=== PATIENT | female | born 1935 | race Caucasian/White ===

== ENCOUNTER 2016-12-27 10:01 | Inpatient (IN) | payer MEDICARE, BC, MEDICAID ==
[2016-12-27] MEDS ORDERED: FISH OIL PO PRN (13:42)
[2016-12-27] MEDS ORDERED: diphenhydrAMINE 25 MG Cap PO PRN (13:42)
[2016-12-27] MEDS ORDERED: Meclizine 12.5 MG Tab PO PRN (13:42)
[2016-12-27] MEDS: Acetaminophen/HYDROcodone 325-5 MG Tab PO PRN ×3 (14:35→21:59)
[2016-12-27] MEDS: Potassium Chloride 10 MEQ Tab.ER PO SCH ×2 (17:25→20:06)
[2016-12-27] MEDS: Fluticasone Propionate Nasal Spray 16 GM Bottle NASBOTH SCH (20:01)
[2016-12-27] MEDS: Latanoprost 0.005% Ophth Soln 2.5 ML Bottle EYEBOTH SCH (20:02)
--- NOTE | 2016-12-27 22:06 | HP ---
CHIEF COMPLAINT: Status post hip replacement. HISTORY OF PRESENT ILLNESS: Amber is an 81-year-old female who presents to the ER today for a swing bed admission status post left hip total replacement. The patient underwent a hip replacement on 12/22/2016. She states she is feeling well status post surgery. She states that she has had a little bit discomfort with it, however, she has been taking hydrocodone which does give her some relief. She denies any bowel changes. No constipation secondary to narcotic use. She states it has been irregular. States she has not had any infections or any drainage from the site. She has been getting up and being ambulatory with a walker. She states that she definitely feels that she is a little hesitant with walking, however, it is progressing daily. PAST MEDICAL HISTORY: Chronic illnesses do include a history of allergic rhinitis, arthritis, history of edema, gastroesophageal reflux disease, history of hypertension, hormonal replacement therapy, hypothyroidism, insomnia, history of diarrhea. ALLERGIES: CURRENT ALLERGIES INCLUDE A FLOXIN, MONISTAT 1, TROVAN, AMPICILLIN, BACTRIM, BIAXIN, DOXYCYCLINE, ERYTHROMYCIN, AND LEVAQUIN. CURRENT MEDICATIONS: Include Ambien 5 mg 1 to 2 tablets at bedtime p.r.n., vitamin E 400 unit capsule, vitamin D3 of 2000 units p.o. daily, vitamin C 500 mg p.o. daily, triamterene hydrochlorothiazide 37.5/25 mg one tablet p.o. daily, omeprazole 20 mg one tablet p.o. daily, multivitamin one tablet p.o. daily, metoprolol succinate 50 mg p.o. daily, meclizine 25 mg p.o. t.i.d. p.r.n., levothyroxine 88 mcg p.o. daily, hydrocodone/acetaminophen 5/325 one to two tabs every 4 hours as needed, Flonase 1 spray both nostrils at bedtime, fish oil one tablet p.o. daily p.r.n., estradiol 1 mg p.o. daily, Benadryl 25 mg p.o. q.4 hours p.r.n., latanoprost eyedrops one drop both eyes at bedtime, colestipol HCL 1 g p.o. b.i.d., calcium magnesium zinc plus vitamin D tablet one p.o. daily, Klor-Con 20 mEq p.o. q.i.d., CoQ10 of 200 mg 2 tablets p.o. daily, flaxseed 1000 mg p.o. daily, and furosemide 40 mg p.o. daily. PAST SURGICAL HISTORY: Includes history of appendectomy, breast surgery including lumpectomy, cataracts surgery, gallbladder surgery, hysterectomy, knee surgery, left total hip replacement. FAMILY HISTORY: Reviewed. SOCIAL HISTORY: The patient is a nondrinker and nonsmoker. Currently, resides at home by herself. She is retired. REVIEW OF SYSTEMS: Grossly benign. She denies any headaches. No fevers, no chills, no nausea, no shortness of breath, no chest pain, no palpitations in her chest. Denies any constipation or diarrhea. No bloody stools. Denies any fevers. No chills. States that she does not have any concerns with wound itself. Does admit to little bit of swelling on her lower extremities. PHYSICAL EXAMINATION: VITAL SIGNS: Blood pressure 122/71, pulse of 83, temp of 97.9, O2 is 97% on room air, respiratory rate is 18. GENERAL: Pleasant, cooperative female. She is sitting in her bed, does not really appear to be any acute distress, not acutely ill. HEENT: Grossly unremarkable. LUNGS: Clear to auscultation. I do not hear any adventitious sounds. Respirations are nonlabored. CARDIAC: Regular rate and rhythm. No murmurs, gallops, or rubs are noted. ABDOMEN: Soft, nontender, nondistended. Bowel sounds present. Normoactive. No organomegaly. No guarding or rigidity. EXTREMITIES: Dressing noted to the left hip. I do not see any signs of any erythema present. There is a scant amount of pedal edema bilaterally in both lower extremities. Pedal pulses are present, equal bilaterally. NEUROLOGICAL: She is alert and orientated. No motor or sensory function deficits are noted. ASSESSMENT: STATUS POST LEFT TOTAL HIP REPLACEMENT. PLAN: The patient will be admitted to Dr. Machado's services which Dr. Machado is aware of the patient admission at this time and agrees with admission. We will order physical therapy and occupational therapy for strengthening condition. She is aware of this at this time. She does not have any concerns. All questions are answered. Followup appointment will be with Dr. Rowley on 01/18/2017 at [place] at 1:20 p.m. We will also put on Lovenox at this point in time 40 mg p.o. daily. We will allow that she may shower at this time as well. Dr. Machado will follow her during her stay. KAYDEN/RANI /[id number]
[2016-12-28] MEDS: Acetaminophen/HYDROcodone 325-5 MG Tab PO PRN ×4 (03:33→19:56)
[2016-12-28] MEDS: Pantoprazole 40 MG Tab.CR PO SCH (07:04)
[2016-12-28] MEDS: Levothyroxine 88 MCG Tab PO SCH (07:04)
--- OUTSIDE RECORDS SUMMARY | 2016-12-28 07:09 | XMSREPORT | Summary of Care ---
:1935 Author Organization [facility] Address [address] [place] [address] Phone Care Team Providers Name Role Phone , Primary Care Provider Unavailable Reason for Referral Incoming Reason Specialty Diagnoses / Referred By Referred To Referral Procedures Contact Contact Auth/Cert Continuity of Diagnoses [facility], (Routine) Care Unspecified MD Roger osteoarthritis, [address] unspecified site [place], [place] ARTHROPLASTY [address] ACETABULAR Phone: PROXIMAL FEMORAL [phone] PROSTHETIC Fax: REPLACE [facility] AUTOG [phone] Encounter Details Date Type Department Care Team Description 12/22/2016 - Hospital Encounter [facility], Degenerative joint 12/27/[address] MD Roger disease (DJD) of hip [address] [place] [address] [place], [place] [phone] [id number] [phone] Allergies Active Allergy Reactions Severity Noted Date Comments Na Rash High Ewagzdop-Fffujbmgroadmoso-Bla methoprim Evaokwwny-Zcomtnecilgupj-Ka Other (Specify in High Stomach pain Benzoate Comments) Cephalexin Unknown/Not Verified High Ofloxacin Nausea and Vomiting High Levaquin Hives (High),Rash High 03/14/2012 [facility] Hives High 03/14/2012 (High),Rash,Nausea and Vomiting,Diarrhea Alatrofloxacin Unknown/Not Verified High Amoxicillin Nausea and 03/14/2012 Vomiting,Diarrhea Ampicillin Nausea and 03/14/2012 Vomiting,Diarrhea Doxycycline Nausea and 03/14/2012 Vomiting,Diarrhea as of this encounter Medications Prescription Sig. Disp. Refills Start End Status Date Date metoprolol Take 50 mg by Active succinate (TOPROL mouth 1 time per XL) 50 mg SR tablet day. (24 hr) triamterene-hydroch Take 1 tablet by Active lorothiazide mouth 1 time per (MAXZIDE-25) day. 37.5-25 mg tablet omeprazole Take 20 mg by Active (PRILOSEC) 20 mg mouth 1 time a day capsule in the evening. fluticasone [place] 1 spray into Active (FLONASE) 50 each nostril every 6 mcg/spray nasal night at bedtime spray zolpidem (AMBIEN) 5 Take 5-10 mg by Active mg tablet mouth At bedtime 7 as needed for insomnia Multiple Vitamin Take 1 tablet by Active (MULTIVITAMIN) TABS mouth 1 time per day. vitamin D3, Take 2,000 Units Active cholecalciferol, by mouth 1 time 2000 unit tablet per day. vitamin C, ascorbic Take 500 mg by Active acid, 500 MG tablet mouth 1 time per day. omega-3 fatty acids Take 1,000 mg by Active (FISH OIL) 1000 mg mouth 1 time per capsule day. levothyroxine 88 Take 88 mcg by Active mcg tablet mouth 1 time per day estradiol (ESTRACE) Take 1 mg by mouth Active 1 mg tablet 1 time per day potassium chloride Take 20 mEq by Active (KLOR-CON M20) 20 mouth 4 times a MEQ CR tablet day colestipol Take 1 g by mouth Active (COLESTID) 1 G TABS 2 times a day Flaxseed, Linseed, Take 1,000 mg by Active (FLAX SEED OIL) mouth 1 time per 1000 MG capsule day latanoprost Place 1 drop into Active (XALATAN) 0.005 % both eyes every ophthalmic solution night at bedtime vitamin E 400 UNITS Take 400 Units by Active capsule mouth 1 time per day diphenhydramine Take 25 mg by Active (BENADRYL) 25 mg mouth every 4 to 6 tablet hours as needed for insomnia, itching, rash or hives acetaminophen Take 1,000 mg by Active (TYLENOL) 500 mg mouth Every 4 tablet hours as needed for mild pain, moderate pain, fever > (indicate temp) or headache lvjazor-altdpwxmt-g Take 1 tablet by Active inc 333-133-5 MG mouth 1 time per TABS day ubiquinone-10 Take 400mg by Active (COENZYME Q10) 200 mouth 1 time per mg capsule day HYDROcodone-acetami Take 1-2 tablets 60 tablet 0 Active nophen (NORCO) by mouth Every 4 7 5-325 mg hours as needed tabletIndications:P for other rimary (Specify) (1 pain osteoarthritis of scale 1-5, 2 pain left hip scale 6-10) enoxaparin Inject 40 mg 23 syringe 0 Active (LOVENOX) 40 mg subcutaneously 1 7 syringe (100 mg/mL) time per day subcutaneous injection solutionIndications :Primary osteoarthritis of left hip levothyroxine Take 100 mcg by Discontinued (SYNTHROID) 100 mcg mouth 1 time per 017 tablet day. timolol hemihydrate 1 drop 2 times a Discontinued (BETIMOL) 0.5 % day. Route not 017 ophthalmic solution specified. estrogens Take 0.625 mg by Discontinued conjugated mouth 1 time per 6 017 (PREMARIN) 0.625 MG day. tablet diclofenac Apply to affected Discontinued (VOLTAREN) 1% gel area as needed. 2 017 pregabalin (LYRICA) Take 50 mg by Discontinued 50 mg capsule mouth 2 times a 2 017 day. Calcium Take 2,000 mg by Discontinued Carbonate-Vit D-Min mouth 1 time per 017 (CALCIUM 1200 PO) day. ubiquinone-10 (CO Take 400 mg by Discontinued Q10) 100 mg capsule mouth 1 time per 017 day. hydrOXYzine HCl Take 10 mg by Discontinued (ATARAX) 10 mg mouth as needed. 017 tablet potassium chloride Take 10 mEq by Discontinued (MICRO-K) 10 mEq mouth 1 time per 017 capsule day. LORazepam (ATIVAN) Take 1 mg by mouth Discontinued 1 mg tablet as needed. 017 furosemide (LASIX) Take 40 mg by 03/07/2 Discontinued 40 mg tablet mouth 1 time per 017 day HYDROcodone-acetami Take 1-2 tablets Suspended nophen 2.5-325 MG by mouth every 4 017 tablet to 6 hours as needed as of this encounter Active Problems Problem Noted Date Degenerative joint disease (DJD) of hip 12/23/2016 Breast calcifications on mammogram 07/13/2016 Endocrine disorder 03/18/2009 Abdominal pain Overview: SUGGESTIVE OF IBS. PATIENT HAD STOOL TEST IN 06/2006 CONSISTING OF CULTURE AND SENSITIVITY, C-DIFF, FECAL, LEUKOCYTES, AND GIARDIA ANTIGEN WHICH WERE ALL NEGATIVE. SHE DID HAVE A CONSULT WITH [facility] IN 2003. RECORDS HAVE BEEN REQUESTED. COLONOSCOPY AND EGD PERFORMED PERFORMED IN 2003 ONLY A CHRONIC GASTRITIS. MINIMAL REFLEX AND OCCASIONAL GASTRIC INFLAMMATORY NODULE Essential hypertension Allergic rhinitis Hypothyroidism Fibromyalgia Hot flashes, menopausal Overview: ON HORMONE REPLACEMENT THERAPY Other and unspecified hyperlipidemia Anemia Backache Overview: PATIENT DID HAVE L3-4, L4-5 SPINDYLOLISTHESIS DEMONSTRATED ON MRI IN 2001. SHE HAD CONSULT WITH NEUROSURGERY WHO RECOMMENDED HEMILAMINOTOMY VERSUS DISCECTOMY HOWEVER THE PATIENT I BELIEVE OPTED FOR EPIDURAL STEROID INJECTION Paroxysmal supraventricular tachycardia Overview: HOLTER MONITOR 05/2004 SHOWED THESE as of this encounter Immunizations Name Dates Previously Given Next Due Influenza Vaccine 07/12/2016 as of this encounter Social History Tobacco Use Types Packs/Day Years Used Date Never Smoker Alcohol Use Drinks/Week oz/Week Comments No Sex Date Recorded Unknown as of this encounter Last Filed Vital Signs Vital Sign Reading Time Taken Blood Pressure 150/64 12/27/2016 6:56 AM CDT Pulse 70 12/27/2016 6:56 AM CDT Temperature 36.5 C (97.7 F) 12/27/2016 6:56 AM CDT Respiratory Rate 16 12/27/2016 6:56 AM CDT Oxygen Saturation 100% 12/27/2016 6:56 AM CDT Inhaled Oxygen Concentration - - Weight 63 kg (139 lb) 12/10/2016 10:55 AM NUTRITION SERVICES AIDE Height 155.6 cm (5' 1.26") 12/22/2016 10:15 AM CDT Body Mass Index 26.05 12/10/2016 10:55 AM NUTRITION SERVICES AIDE in this encounter Functional Status Functional Status Response Date of Assessment Is the person deaf or does he/she have serious difficulty No 12/10/2016 hearing? Is this person blind or does he/she have difficulty No 12/10/2016 seeing even when wearing glasses? Do you have difficulty with walking, balance, climbing No 12/10/2016 stairs, or had a fall in the last 3 months? Does the patient have difficulty dressing or bathing? No 12/10/2016 Because of a physical, mental, or emotional condition; No 12/10/2016 does this person have difficulty doing errands alone such as visiting a doctor's office or shopping? Cognitive Status Response Date of Assessment Because of a physical, mental, or emotional condition; No 12/10/2016 does this person have serious difficulty concentrating, remembering, or making decisions? as of this encounter Discharge Instructions Andria De Leon RN - 12/27/2016Post operative pain control Pain after an operation (post-op pain) is common and expected. These guidelines can help you stay as comfortable as possible. Take medicines on time. Do not take more than prescribed. Take only the medicines that your healthcare provider tells you to take. Take pain medicines with some food to avoid an upset stomach. Dont drink alcohol while using pain medicines. Constipation Constipation is a common side effect of pain medicines. Constipation means you have bowel movements fewer than three times per week, or strain to pass hard, dry stool. One of the best ways to help treat constipation is to increase your fiber intake. You can do this either through diet or by using fiber supplements. Fiber (in whole grains, fruits, and vegetables) adds bulk and absorbs water to soften the stool. Thishelps the stool pass through the colon more easily. When you increase your fiber intake, do it slowly to avoid side effects such as bloating. Also increase the amount of water that you drink. Eating more of the following foods can add fiber to your diet. Exercise helps improve the working of your colon which helps ease constipation. Your health care provider may suggest an cajx-kgc-dsatkuo stool softener, such as Senna or Colace to help ease your constipation. He or she may suggest the use of bulk-forming agents or laxatives. Theuse of laxatives, if used as directed, is common and safe. Follow directions carefully when using them. Pain Management at Home It is important to slowly wean off your prescribed pain medications that you are taking after surgery. You should start this when your pain is getting better : ? Decrease the amount of your prescribed pain med taken at each dose (for example from taking 2 pills to taking 1 pill). ? Decrease how often you are taking your pills (for example go from taking every 6 hours to taking every 8 hours). ? Continue to decrease until you are completely off your pain medications. ? If you need a small of amount of pain relief, try using an aqrm-rzj-dpdatbx pain reliever (for example acetaminophen or Ibuprofen). ? Talk to your doctor about what fluf-eri-aveaita pain medication is best for you. Preventing Blood Clots (Deep Vein Thrombosis) In the days and weeks after surgery, you have a higher chance of developing a deep vein thrombosis (DVT). This is a condition in which a blood clot or thrombus develops in a deep vein. They are most common in the leg. But, a DVT may develop in an arm, or another deep vein in the body. A piece of the clot, called an embolus, can separate from the vein and travel to the lungs. A blood clot in the lungs is called a pulmonary embolus (PE). This can cut off the flow of blood. It is a medical emergencyand may cause . Deep vein thrombosis can occur even after you go home. Follow all instructions from your health care provider. The following are some general guidelines about DVT prevention: Anticoagulant medication. If an anticoagulant was prescribed, make sure you follow all directions about taking it. Be sure you know what foods and medicines may interact. Also, ask your health careprovider what to do if you forget to take a dose. Compression stockings. Your health care provider will tell you how often to wear and remove the stockings. Follow all instructions closely. Each time you remove your stockings, check your legs andfeet for reddened areas or sores. If you see any changes, call your health care provider right away. Returning to activity. Follow all instructions about returning to activities. Be as active as you can. This improves blood flow and helps prevent a clot from forming. When in bed or in a chair, continue with the ankle exercises you did in the hospital. in this encounter Progress Notes Refugio Cook MD - 12/27/2016 7:49 AM CDTFormatting of this note may be different from the original. HPI: Doing well. Plan is swing bed today. Denies CP or SOB. Slept ok. O: BP 150/64 Pulse 70 Temp 97.7 F (36.5 C) Resp 16 Ht 1.556 m (5' 1.26" ) Wt 63 kg (139 lb) SpO2 100% BMI 26.05 kg/m2|| GEN: NAD LUNGS: CTAB CV RR S1 S2 ABDOMEN: Soft NT ND +BS EXT: No Edema Lab Results Component Value Date WBC 8.3 12/27/2016 RBC 2.82 (L) 12/27/2016 HEMOGLOBIN 8.6 (L) 12/27/2016 HEMATOCRIT 26.6 (L) 12/27/2016 MCV 94.3 12/27/2016 MCH 30.5 12/27/2016 MCHC 32.3 12/27/2016 PLTCOUNT 450 (H) 12/27/2016 NEUTROPCT 47.3 12/27/2016 LYMPHSPCT 32.6 12/27/2016 MONOSPCT 11.0 12/27/2016 EOSPCT 8.8 12/27/2016 BASOPHILPCT 0.2 12/27/2016 Lab Results Component Value Date CO2 30 12/27/2016 CL 97 (L) 12/27/2016 POTASSIUM 4.6 12/27/2016 NA 137 12/27/2016 CREATSERUM 0.40 (L) 12/27/2016 GLUCOSE 99 12/27/2016 BUN 10 12/27/2016 CA 8.8 12/27/2016 Lab Results Component Value Date GLUCOSE 99 12/27/2016 A/P 1. H/o paroxysmal SVT- stable --continue metoprolol 2. HTN --stable 3. Hypothyroidism on replacement 4. Distant h/o DVT no termite helper anticoagulation 5. L hip pain s/p L YOUNG- Plan Swing Bed today, discharge medication and interagency done 6. Hypokalemia- replace and follow. Will restart her home potassium supplement. 7. RT. Ankle paina nd Rt.Leg cramps- have restarted her home supplements, Sx better this am, follow. 8. Anemia-8.6<8.5<8.9<9 asymptomatic follow. Isrrael-Celestino Peters MD - 12/26/2016 1:03 PM CDTFormatting of this note may be different from the original. S: Intirim events noted. Seen in her room PT at the bed side. Did get dose of Benadryll and states rash is better, denies any SOB or wheezing no other associated Sx. RT ankle pain is better. Cramps resolved.Doing better no concerns. Denies CP,SOB, ordiziness. Pain is better. O: BP 128/62 Pulse 82 Temp 98.9 F (37.2 C) Resp 20 Ht 1.556 m (5' 1.26" ) Wt 63 kg (139 lb) SpO2 100% BMI 26.05 kg/m2|| GEN: Awake alert and appropriate NAD LUNGS: CTAB CV RR S1 S2 ABDOMEN: Soft NT ND +BS EXT: No Edema or cords. Rt. Ankle mild swelling and tenderness on palpation, no redness or warmth. ?rash on left leg better. Lab Results Component Value Date HEMOGLOBIN 8.5 (L) 12/25/2016 Lab Results Component Value Date CO2 32 12/25/2016 CL 97 (L) 12/25/2016 POTASSIUM 3.2 (L) 12/25/2016 NA 138 12/25/2016 CREATSERUM 0.50 (L) 12/25/2016 GLUCOSE 120 (H) 12/25/2016 BUN 10 12/25/2016 CA 8.6 12/25/2016 A/P 1. H/o paroxysmal SVT- stable --continue metoprolol 2. HTN --ok 3. Hypothyroidism on replacement 4. Distant h/o DVT no termite helper anticoagulation 5. L hip pain s/p L YOUNG- management per ortho. 6. Hypokalemia- replace and follow. Will restart her home potassium supplement. 7. RT. Ankle paina nd Rt.Leg cramps- have restarted her home supplements, Sx better this am, follow. 8. Anemia-8.5<8.9<9 asymptomatic follow. Cont PT, ? TCU Tuesday No labs from today. Renal panel and CBC in am.Gallo Sprague PA-C - 12/26/2016 8 :18 AM CDTFormatting of this note may be different from the original. Orthopedic Daily Progress Note: Assessment: Siobhan Huston is a 81yr old female 4 Days Post-Op, S/P: Procedure(s): LEFT TOTAL HIP ARTHROPLASTY Subjective: Doing well. Pain well controlled. No complaints. Objective: Current Vital Signs Temp: 98.1 F (36.7 C) BP: 116/53 Pulse: 93 O2 Device: Room Air O2 Flow Rate (L/min): 1 l/min Resp: 20 Pain Ratin (out of 10) Weight: 63 kg (139 lb) SpO2: 99 % Maximum Temperatures (last 24 hours) Temperature Maximum Max Temp 99 F (37.2 C) Dressing and incision clean, dry and intact. Neurovascular intact. Lab Results Component Value Date HEMOGLOBIN 8.5 (L) 12/25/2016 , No results found for: INR, PT Plan: Continue PT, Pain Meds, and DVT Prophylaxis with lovenox. Planning transfer to in [place] Tuesday. Nazanin Samaniego PA-C - 12/25/2016 10:31 AM CDTFormatting of this note may be different from the original. [facility] Progress Note HPI: Siobhan Huston is a 81yr female here for 3 Days Post-Op, Procedure(s): LEFT TOTAL HIP ARTHROPLASTY . Patient of Dr. Rowley S: Events overnight: doing well. Pain moderate to L hip denies any nausea/ vomiting. Denies numbness, tingling, weakness. O: Current Vital Signs Temp: 99.3 F (37.4 C) BP: 113/48 Pulse: 77 O2 Device: Room Air O2 Flow Rate (L/min): 1 l/min Resp: 16 Pain Ratin (out of 10) Weight: 63 kg (139 lb) SpO2: 98 % Vital Signs Min/Max (last 24 hours) Flowsheet Row Name Min Max Temp 98.3 F (36.8 C) 100.3 F (37.9 C) BP: Systolic 113 123 BP: Diastolic 48 55 Pulse 77 87 Resp 16 16 SpO2 90 % 100 % ; Date 12/24/16699 - 12/25/16 0659 12/25/16699 - 12/26/16 0659 Shift 0571-3831 1699-2573 24 Hour Total 1899-0659 24 Hour Total I N T A K E Shift Total O U T P U T Urine 500 200 700 Urine 500 200 700 Unmeasured Urine Occurrence 1 x 1 x 2 x Stool 0 0 Emesis 0 0 Unmeasured Stool Occurrence 0 x 0 x 0 x 0 x Shift Total 500 200 700 NET -500 -200 -700 Weight (kg) 63 63 63 63 63 63 { Lab Results Component Value Date HEMOGLOBIN 8.5 (L) 12/25/2016 EXAM Gen: alert and orientated Incision: Incision C/D/I. With No drainage. left HIP: Ext: Warm, well perfused. ROM appropriate for post-op. Distal NVI. No erythema. Homans negative, no calf pain. EHL/ DF/PF intact. No evidence of acute trauma to other extremities. A/P: 1. S/P Procedure(s): LEFT TOTAL HIP ARTHROPLASTY 3 Days Post-Op - Bowel regimen: continue - Activity: as tolerated - DVT prophylaxis: SCD or Michel stockings. lovenox x 28d, or other managed by IM or TRACS - Pain control: continue IV/PO - Wound: dressing change q2-3d PRN - Follow up: 2 weeks for incision check Nazanin Samaniego PA-C [facility] Pager [phone] Isrrael-Celestino Peters MD - 12/25/2016 10:19 AM CDTFormatting of this note may be different from the original. S: Intirim events noted. Seen in her room C/O Rt. Ankle pain but is much better then yesterday. Cramps resolved.Doing better no new sx or concerns. Denies CP, SOB, or diziness. Pain is better. O: BP 113/48 Pulse 77 Temp 99.3 F (37.4 C) Resp 16 Ht 1.556 m (5' 1.26" ) Wt 63 kg (139 lb) SpO2 98% BMI 26.05 kg/m2|| GEN: Awake alert and appropriate NAD LUNGS: CTAB CV RR S1 S2 ABDOMEN: Soft NT ND +BS EXT: No Edema or cords. Rt. Ankle mild swelling and tenderness on palpation, no redness or warmth. Lab Results Component Value Date HEMOGLOBIN 8.5 (L) 12/25/2016 Lab Results Component Value Date CO2 32 12/25/2016 CL 97 (L) 12/25/2016 POTASSIUM 3.2 (L) 12/25/2016 NA 138 12/25/2016 CREATSERUM 0.50 (L) 12/25/2016 GLUCOSE 120 (H) 12/25/2016 BUN 10 12/25/2016 CA 8.6 12/25/2016 A/P 1. H/o paroxysmal SVT- stable --continue metoprolol 2. HTN --ok 3. Hypothyroidism on replacement 4. Distant h/o DVT no nursing home anticoagulation 5. L hip pain s/p L YOUNG- management per ortho. 6. Hypokalemia- replace and follow. Will restart her home potassium supplement. 7. RT. Ankle paina nd Rt.Leg cramps- have restarted her home supplements, Sx better this am, follow. 8. Anemia-8.5<8.9<9 asymptomatic follow. Cont PT, ? TCU tuesdayDelonte Hodge PA - 12/24/2016 8:13 AM CDTFormatting of this note may be different from the original. Ortho Progress Note Siobhan Huston is a 81yr female here for 2 Days Post-Op, Procedure(s): LEFT TOTAL HIP ARTHROPLASTY . Patient of Dr. Rowley BP 117/48 Pulse 85 Temp 98.5 F (36.9 C) Resp 16 Ht 1.556 m (5' 1.26") Wt 63 kg (139 lb) SpO2 94% BMI 26.05 kg/m2 { Lab Results Component Value Date HEMOGLOBIN 8.9 (L) 12/24/2016 Patient doing ok, complains of moderate pain. The patient denies nausea. The wound has No drainage. Compartments soft and non-tender. Distal NV intact. Slowly improving with Physical Therapy today. Continue care plan. Working on discharge plans, likely to [facility] in [facility].Refugio Cook MD - 12/24/2016 7:48 AM CDTFormatting of this note may be different from the original. HPI: Denies issues. Denies CP or SOB. Pain is better. O: BP 135/53 Pulse 82 Temp 98.5 F (36.9 C) Resp 16 Ht 1.556 m (5' 1.26" ) Wt 63 kg (139 lb) SpO2 98% BMI 26.05 kg/m2|| GEN: NAD LUNGS: CTAB CV RR S1 S2 ABDOMEN: Soft NT ND +BS EXT: No Edema Lab Results Component Value Date HEMOGLOBIN 8.9 (L) 12/24/2016 Lab Results Component Value Date POTASSIUM 3.6 12/22/2016 CREATSERUM 0.50 (L) 12/23/2016 A/P 1. H/o paroxysmal SVT- stable --continue metoprolol 2. HTN --ok 3. Hypothyroidism on replacement 4. Distant h/o DVT no termite helper anticoagulation 5. L hip pain s/p L YOUNG Cont PT, ? TCU Alyssa Rivero PA - 12/23/2016 1:33 PM CDTFormatting of this note may be different from the original. ORTHO progress note. Siobhan Huston is a 81yr old female admitted on 12/22/2016 9:49 AM 1 Day Post-Op, patient of Roger Rowley MD Status Post: Procedure(s): LEFT TOTAL HIP ARTHROPLASTY Patient doing ok, having more pain, but states pain meds are working. She denies nausea today. Lab Results Component Value Date HEMOGLOBIN 9.0 (L) 12/23/2016 Current Vitals: BP 103/47 Pulse 73 Temp 97.8 F (36.6 C) Resp 16 Ht 1.556 m (5' 1.26") Wt 63 kg (139 lb) SpO2 100% BMI 26.05 kg/m2 Dist NVI. Dressing intact. Plan: Continue cares, PT. Pain management. KAREN Leon Mark, MD - 12/23/2016 8:24 AM CDTFormatting of this note may be different from the original. HPI: Doing well. Denies CP or SOB. Pain was tough but is better now. Denies nausea. O: BP 103/47 Pulse 73 Temp 97.8 F (36.6 C) Resp 16 Ht 1.556 m (5' 1.26" ) Wt 63 kg (139 lb) SpO2 99% BMI 26.05 kg/m2|| GEN: NAD LUNGS: CTAB CV RR S1 S2 ABDOMEN: Soft NT ND +BS EXT: No Edema Lab Results Component Value Date HEMOGLOBIN 9.0 (L) 12/23/2016 Lab Results Component Value Date POTASSIUM 3.6 12/22/2016 CREATSERUM 0.50 (L) 12/23/2016 A/P 1. H/o paroxysmal SVT --no issue, remove tele --continue metoprolol 2. HTN --ok 3. Hypothyroidism on replacement 4. Distant h/o DVT no termite helper anticoagulation 5. L hip pain s/p L YOUNG mobilizeRoger Rowley MD - 12/22/2016 10:42 AM CDTRisks and goals have been discussed. All questions answered. No guarantees given. p atient agrees to proceed in this fashion. HBerglund Etta Cooley, [facility] - 12/22/2016 10: 36 AM CDTPatient was seen by pharmacy for medication reconciliation. Home medications have been reconciled and updated on the home medication list to match the patient's home usage. Etta Adamson, PharmD, [facility] Plan of Treatment Date Type Specialty Care Team Description 01/18/2017 Office Visit Orthopedics Roger Rowley MD [address] [place] [address] [phone] Name Priority Associated Diagnoses Date/Time TISSUE EXAM Routine Osteoarthritis 12/22/2016 11:30 AM CDT Name Priority Associated Diagnoses Order Schedule TISSUE EXAM Routine Osteoarthritis ONCE for 1 Occurrences starting 2016, 1 completed Health Maintenance Due Date Last Done Comments Tetanus Vaccine 1953 Zoster Vaccine (#1) 1995 Pneumococcal 65yr+ Low/Med Risk (1 02/22/2000 of 2 - PCV13) Mammogram 07/13/2017 07/13/2016, 06/29/2016, 06/18/2016, Additional history exists DEXA/Heel Scan 05/04/2028 05/04/2013 (Previously completed), 05/04/2013, 04/18/2009 (Previously completed), Additional history exists Influenza Vaccine Completed 07/12/2016 as of this encounter Implants Implanted Type Area Senior Insight Manager Device Expiration Model / Identifier Date Serial / Lot Iol Tecnis Virgilio 20.0 N [id number] Ea - [id number] Ophthalmology VIRG[employer] SALES & 03/20/2017 [id number] / Implanted:Qty: 1 on 03/20/2014 SERVICE [id number] / Hip Shell Trid Hudson 0hl 52mm N [id number] Ea - Sn/A Total Jt Hip Left: TERRY 09/21/2021 [id number] / Implanted:Qty: 1 on 12/22/2016 by Roger Rowley MD ACETABULUM N/ A / [id number] Hip Lnr Trid X3 Pe 10d 36mm E N [id number] Ea - Sn/A Total Jt Hip Left: TERRY 07/01/2021 [id number] / Implanted:Qty: 1 on 12/22/2016 by Roger Rowley MD ACETABULUM N/ A / [id number] Hip Stem Acldii 132d Sz4 N [id number] Ea - Sn/A Total Jt Hip Left: FEMUR TERRY 08/09/2021 [id number] / Implanted:Qty: 1 on 12/22/2016 by Roger Rowley MD N/A / [id number] Hip Hd V40 [place] Cer 36mm -5 N [id number] Ea - Sn/A Total Jt Hip Left: FEMUR TERRY 11/14/2021 [id number] / Implanted:Qty: 1 on 12/22/2016 by Roger Rowley MD N/A / [id number] as of this encounter Procedures Procedure Name Priority Date/Time Associated Diagnosis Comments LEFT TOTAL HIP 12/22/2016 10:25 AM Osteoarthritis ARTHROPLASTY CDT Special Needs *P* KEEP LAST CASE DUE TO RIDE in this encounter Results LAB ONLY-COMPLETE BLOOD COUNT WITH DIFFERENTIAL (12/27/2016 5:37 AM) Component Value Ref Range WBC 8.3 4.0 - 11.0 K/uL RBC 2.82(L) 3.80 - 5.30 M/uL Hemoglobin 8.6(L) 11.5 - 15.8 g/dL Hematocrit 26.6(L) 35.0 - 45.0 % MCV 94.3 80.0 - 98.0 fL MCH 30.5 25.5 - 34.0 pg MCHC 32.3 31.5 - 36.5 g/dL RDW-CV 14.1 11.5 - 15.5 % RDW-SD 46.6 35.5 - 50.0 fl Platelet Count 450(H) 140 - 400 K/uL MPV 9.2 8.5 - 12.0 fL Seg Neut Absolute 3.9 1.8 - 8.0 K/uL Lymphocytes Absolute 2.7 0.8 - 4.1 K/uL Monocytes Absolute 0.9 0.0 - 1.0 K/uL Eosinophils Absolute 0.7 0.0 - 0.7 K/uL Basophil Absolute 0.0 0.0 - 0.2 K/uL Neutrophils Abs. (Segs and Bands) 3900 /uL Neutrophils Percent 47.3 % Lymphocytes Percent 32.6 % Monocytes Percent 11.0 % Eosinophils Percent 8.8 % Basophil Percent 0.2 % Specimen Performing Laboratory Blood [facility] [address] [place] [address] COMPLETE BLOOD COUNT WITH DIFFERENTIAL (12/27/2016 5:37 AM) Specimen Performing Laboratory Blood Narrative The following orders were created for panel order COMPLETE BLOOD COUNT WITH DIFFERENTIAL. Procedure Abnormality Status --------- ------ LAB ONLY-COMPLETE BLOOD ...[[id number]]AbnormalFinal result Please view results for these tests on the individual orders. RENAL FUNCTION PANEL (12/27/2016 5:37 AM) Component Value Ref Range Glucose 99 70 - 100 mg/dL BUN 10 6 - 22 mg/dL Creatinine 0.40(L) 0.60 - 1.10 mg/dL BUN/Creatinine Ratio 25.0 10.0 - 25.0 Sodium 137 135 - 145 meq/L Potassium 4.6 3.5 - 5.3 meq/L Chloride 97(L) 99 - 110 meq/L CO2 30 23 - 32 meq/L Anion Gap with K 15 6 - 20 meq/L Calcium 8.8 8.5 - 10.2 mg/dL Phosphorus 3.3 2.5 - 4.5 mg/dL Albumin 2.7(L) 3.6 - 5.0 g/dL Corrected Calcium 9.8 8.5 - 10.5 mg/dL Age 81 Years eGFR Non- >90 >=60 mL/min/1.73m2 eGFR >90 >=60 mL/min/1.73m2 Specimen Performing Laboratory Blood - Venous [facility] [address] [place] [address] URIC ACID (12/25/2016 5:56 AM) Component Value Ref Range Uric Acid 4.9 2.5 - 6.2 mg/dL Specimen Performing Laboratory Blood [facility] [address] [place] [address] MAGNESIUM (12/25/2016 5:56 AM) Component Value Ref Range Magnesium 1.8 1.8 - 2.4 mg/dL Specimen Performing Laboratory Blood [facility] [address] [place] [address] RENAL FUNCTION PANEL (12/25/2016 5:56 AM) Component Value Ref Range Glucose 120(H) 70 - 100 mg/dL BUN 10 6 - 22 mg/dL Creatinine 0.50(L) 0.60 - 1.10 mg/dL BUN/Creatinine Ratio 20.0 10.0 - 25.0 Sodium 138 135 - 145 meq/L Potassium 3.2(L) 3.5 - 5.3 meq/L Chloride 97(L) 99 - 110 meq/L CO2 32 23 - 32 meq/L Anion Gap with K 12 6 - 20 meq/L Calcium 8.6 8.5 - 10.2 mg/dL Phosphorus 2.1(L) 2.5 - 4.5 mg/dL Albumin 2.8(L) 3.6 - 5.0 g/dL Corrected Calcium 9.6 8.5 - 10.5 mg/dL Age 81 Years eGFR Non- >90 >=60 mL/min/1.73m2 eGFR >90 >=60 mL/min/1.73m2 Specimen Performing Laboratory Blood [facility] [address] [facility] [place] [place] [address] HEMOGLOBIN (12/25/2016 5:56 AM) Component Value Ref Range Hemoglobin 8.5(L) 11.5 - 15.8 g/dL Specimen Performing Laboratory Blood [facility] [address] [place] [address] HEMOGLOBIN (12/24/2016 6:17 AM) Component Value Ref Range Hemoglobin 8.9(L) 11.5 - 15.8 g/dL Specimen Performing Laboratory Blood [facility] [address] [place] [address] CREATININE (12/23/2016 6:41 AM) Component Value Ref Range Creatinine 0.50(L) 0.60 - 1.10 mg/dL Age 81 Years eGFR Non- >90 >=60 mL/min/1.73m2 eGFR >90 >=60 mL/min/1.73m2 Specimen Performing Laboratory Blood [facility] [address] [place] [address] HEMOGLOBIN (12/23/2016 6:41 AM) Component Value Ref Range Hemoglobin 9.0(L) 11.5 - 15.8 g/dL Specimen Performing Laboratory Blood [facility] [address] [place] [address] XRAY PELVIS 1 OR 2V (12/22/2016 12:55 PM) Specimen Performing Laboratory LAB Narrative Name: SIOBHAN HUSTON : 1935/81Y/F XRAY PELVIS 1 OR 2V 12/22/2016 12:55:00 INDICATION:post op YOUNG EXAM: AP PELVIS 1249 HOURS FINDINGS: Completed total left hip arthroplasty. No fracture or dislocation is seen. There is some postoperative air within the soft tissues. Rajan Richardson M.D., Radiology/[id number] Job ID/Trans ID:[id number] Doc ID:[id number] NUTRITION SERVICES AIDE NUTRITION SERVICES AIDE cc: CSN: [id number] Order Phys:SHONNAABILL MR#/RENETTA#: [id number] Order ID: [id number] Admit Date:12/22/2016 [facility] RADIOLOGY REPORT [facility] XRAY PELVIS 1 OR 2V (12/22/2016 11:55 AM) Specimen Performing Laboratory LAB Narrative Name: SIOBHAN HUSTON : 1935/81Y/F XRAY PELVIS 1 OR 2V 12/22/2016 11:55:00 INDICATION:Osteoarthritis [M19.90] EXAM: AP PELVIS 11:51 HOURS FINDINGS: Intraoperative film. There is a total hip arthroplasty. No fracture or dislocation is seen. Rajan Richardson M.D., Radiology/[id number] Job ID/Trans ID:[id number] Doc ID:[id number] NUTRITION SERVICES AIDE NUTRITION SERVICES AIDE cc: CSN: [id number] Order Phys:APARNALUND MR#/RENETTA#: [id number] Order ID: [id number] Admit Date:12/22/2016 [facility] RADIOLOGY REPORT [facility] ABO AND RH (12/22/2016 10:35 AM) Component Value Ref Range ABO Type A Rh Type Positive Specimen Performing Laboratory Blood [facility] [address] [place] [id number] POTASSIUM (12/22/2016 10:35 AM) Component Value Ref Range Potassium 3.6 3.5 - 5.3 meq/L Specimen Performing Laboratory Blood [facility] [address] [facility] [place] [place] [address] in this encounter Visit Diagnoses Diagnosis Primary osteoarthritis of left hip - Primary Primary localized osteoarthrosis, pelvic region and thigh Osteoarthritis Osteoarthrosis, unspecified whether generalized or localized, unspecified site Degenerative joint disease (DJD) of hip in this encounter Administered Medications Medication Order MAR Action Action Date Dose Rate Site calcium carbonate-vitamin D (OSCAL 500 + VIT D) 500 mg-200 unit tablet 1 tablet 1 tablet, Oral, One time a day with breakfast, First dose on Tue12/24/16 at 2220, Until Discontinued Given 12/25/2016 08:53 CDT 1 tablet Given 12/26/2016 08:44 CDT 1 tablet Given 12/27/2016 08:55 CDT 1 tablet colestipol (COLESTID) tablet 1 g 1 g, Oral, Two times a day, First dose on Tue12/22/16 at 2100, Until Discontinued Given 12/26/2016 08:44 CDT 1 g Given 12/26/2016 20:20 CDT 1 g Given 12/27/2016 08:56 CDT 1 g enoxaparin (LOVENOX) subcutaneous injection solution 40 mg 40 mg, Subcutaneous, Daily, 28 doses, First dose on Tue12/23/16 at 0800, Last dose on Tue01/19/17 at 0800, Post - Op Given 12/25/2016 08:53 CDT 40 mg Given 12/26/2016 08:44 CDT 40 mg Given 12/27/2016 08:55 CDT 40 mg HYDROcodone-acetaminophen (NORCO) 5-325 mg tablet 2 tablet 2 tablet, Oral, Every four hours prn, Starting Felecia 12/23/16 at 0510, Until Discontinued, other (Specify), see admin instructions, PACU - Continue Post-Op Given 12/26/2016 18:45 CDT 2 tablets Given 12/27/2016 00:38 CDT 2 tablets Given 12/27/2016 09:05 CDT 2 tablets hydrOXYzine pamoate (VISTARIL) capsule 25 mg 25 mg, Oral, Every four hours prn, Starting Felecia 12/23/16 at 0510, Until Discontinued, itching, other (Specify), adjunct pain, PACU - Continue Post-Op Given 12/23/2016 23:48 CDT 25 mg Given 12/26/2016 09:21 CDT 25 mg Given 12/27/2016 00:38 CDT 25 mg latanoprost (XALATAN) 0.005 % ophthalmic solution 1 drop 1 drop, Both eyes, Bedtime, First dose on Tue12/22/16 at 2100, Until Discontinued, 2.5 mL Given 12/24/2016 20:52 CDT 1 drop Given 12/25/2016 21:23 CDT 1 drop Given 12/26/2016 20:21 CDT 1 drop levothyroxine tablet 88 mcg 88 mcg, Oral, DAILY, First dose on Tue12/23/16 at 0730, Until Discontinued Given 12/25/2016 07:00 CDT 88 mcg Given 12/26/2016 06:30 CDT 88 mcg Given 12/27/2016 06:53 CDT 88 mcg magnesium oxide tablet 250 mg 250 mg, Oral, Daily, First dose on Tue12/24/16 at 2220, Until Discontinued Given 12/25/2016 08:52 CDT 250 mg Given 12/26/2016 08:43 CDT 250 mg Given 12/27/2016 08:56 CDT 250 mg metoprolol succinate (TOPROL XL) SR tablet (24 hr) 50 mg 50 mg, Oral, DAILY, First dose on Tue12/23/16 at 0900, Until Discontinued Given 12/25/2016 08:53 CDT 50 mg Given 12/26/2016 08:44 CDT 50 mg Given 12/27/2016 08:59 CDT 50 mg morphine injection solution (conc: 2 mg/mL) 2 mg 2 mg, IV, Every one hour prn, Starting Tue12/23/16 at 1110, Until Discontinued, severe pain, 1 mL, PACU - Continue Post-Op Given 12/23/2016 12:23 CDT 2 mg Given 12/23/2016 19:57 CDT 2 mg Given 12/24/2016 23:04 CDT 2 mg multivitamin therapeutic with minerals (THERA-M) tablet 1 tablet 1 tablet, Oral, Daily, First dose on Tue12/24/16 at 2220, Until Discontinued Given 12/25/2016 08:54 CDT 1 tablet Given 12/26/2016 08:44 CDT 1 tablet Given 12/27/2016 08:57 CDT 1 tablet omeprazole (priLOSEC) capsule 20 mg 20 mg, Oral, Every evening, First dose on Tue12/22/16 at 2100, Until Discontinued Given 12/24/2016 20:52 CDT 20 mg Given 12/25/2016 21:23 CDT 20 mg Given 12/26/2016 20:21 CDT 20 mg polyethylene glycol (MIRALAX) packet 1 packet 1 packet, Oral, Daily, First dose on Tue12/23/16 at 0900, Until Discontinued, Post - Op Given 12/23/2016 09:39 CDT 1 packet Given 12/25/2016 08:53 CDT 1 packet Given 12/27/2016 08:58 CDT 1 packet potassium chloride (KLOR-CON M20) CR tablet 20 mEq 20 mEq, Oral, Four times a day, First dose on Tue12/25/16 at 1300, Until Discontinued Given 12/26/2016 18:42 CDT 20 mEq Given 12/27/2016 00:39 CDT 20 mEq Given 12/27/2016 08:57 CDT 20 mEq senna-docusate sodium (SENOKOT-S;PERICOLACE) tablet 1 tablet 1 tablet, Oral, Two times a day, First dose on Tue12/22/16 at 2100, Until Discontinued, Post - Op Given 12/26/2016 08:44 CDT 1 tablet Given 12/26/2016 20:22 CDT 1 tablet Given 12/27/2016 08:57 CDT 1 tablet sodium chloride 0.9% prefilled 10 mL syringe (Materials Management Item) 1-3 mL 1-3 mL, IV, Daily, First dose on Tue12/24/16 at 0900, Until Discontinued, 10 mL Given 12/24/2016 09:49 CDT 3 mL Given 12/25/2016 08:53 CDT 3 mL Given 12/26/2016 12:10 CDT 3 mL triamterene-hydrochlorothiazide (MAXZIDE-25) 37.5-25 mg tablet 1 tablet 1 tablet, Oral, DAILY, First dose on Tue12/23/16 at 0900, Until Discontinued Given 12/25/2016 08:53 CDT 1 tablet Given 12/26/2016 08:44 CDT 1 tablet Given 12/27/2016 08:57 CDT 1 tablet vitamin c (ascorbic acid) controlled release capsule 500 mg 500 mg, Oral, Daily, First dose on Tue12/24/16 at 2220, Until Discontinued Given 12/25/2016 08:52 CDT 500 mg Given 12/26/2016 08:44 CDT 500 mg Given 12/27/2016 08:58 CDT 500 mg vitamin D3 (cholecalciferol) tablet 2,000 Units 2,000 Units, Oral, Daily, First dose on Tue12/24/16 at 2220, Until Discontinued Given 12/25/2016 08:52 CDT 2,000 Units Given 12/26/2016 08:43 CDT 2,000 Units Given 12/27/2016 08:59 CDT 2,000 Units Medication Order MAR Action Action Date Dose Rate Site clindamycin (CLEOCIN) in D-5% 50 mL IV piggyback (premix) 900 mg 900 mg, IV, Every eight hours, 2 doses, First dose on Tue12/22/16 at 1900, Last dose on Felecia 12/23/16 at 0500, 50 mL, PACU - Continue Post-Op Given 12/22/2016 21:01 CDT 900 mg Given 12/23/2016 05:11 CDT 900 mg diphenhydrAMINE (BENADRYL) capsule 25 mg 25 mg, Oral, One time, 1 dose, 12/26/16 at 0930 Given 12/26/2016 10:29 CDT 25 mg fentaNYL FLAKE MILLER HELPER (50 mcg/mL) solution IV, Titrate, Starting Tue12/22/16 at 1110, Until Felecia 12/23/16 at 1109 New Bag 12/23/2016 03:29 CDT gabapentin (NEURONTIN) capsule 600 mg 600 mg, Oral, Pre-op, 1 dose, Tue12/22/16 at 1010, Pre - Op Given 12/22/2016 10:25 CDT 600 mg HYDROcodone-acetaminophen (NORCO) 5-325 mg tablet 1 tablet 1 tablet, Oral, Every four hours prn, Starting Tue12/22/16 at 1110, Until Felecia at 0509, moderate pain, PACU - Continue Post-Op Given 12/22/2016 21:10 CDT 1 tablet Given 12/23/2016 01:20 CDT 1 tablet ketorolac (TORADOL) injection 30 mg 30 mg, IV, One time, 1 dose, 12/25/16 at 0045, 1 mL Given 12/25/2016 03:29 CDT 30 mg lactated ringers IV solution IV, at 125 mL/hr, Continuous, Starting Tue12/22/16 at 1240, Until Tue12/22/16 at 1641, 1,000 mL, PACU Already Infusing 12/22/2016 12:15 CDT 125 mL/hr New Bag 12/22/2016 15:30 CDT 125 mL/hr ondansetron (ZOFRAN) injection solution 4 mg 4 mg, IV, Every four hours prn, Starting Tue12/22/16 at 1110, Until Felecia at 1109, nausea, vomiting, 2 mL, PACU - Continue Post-Op Given 12/22/2016 19:09 CDT 4 mg potassium chloride (KLOR-CON M20) CR tablet 40 mEq 40 mEq, Oral, One time, 1 dose, Tue12/24/16 at 2220 Given 12/24/2016 22:47 CDT 40 mEq sodium chloride 0.9% IV solution IV, at 100 mL/hr, Continuous, Starting Tue12/22/16 at 1655, Until 12/26/16 at 0513, 1,000 mL, Post - Op New Bag 12/22/2016 18:04 CDT 100 mL/hr New Bag 12/23/2016 03:39 CDT 100 mL/hr traMADol (ULTRAM) tablet 100 mg 100 mg, Oral, Pre-op, 1 dose, Tue12/22/16 at 1010, Pre - Op Given 12/22/2016 10:27 CDT 100 mg in this encounter Insurance Payer Benefit Plan / Subscriber ID Type Phone Address Group MEDICARE MEDICARE PART A & [id number] [place] [address] [place] [id number] [place] [phone] [facility] [place] [address] MEDICAID MEDICAID [place] [id number] Medicaid Guarantor Name Account Type Relation to Date of Phone Billing Patient Address SIOBHAN HUSTON Personal/Family 1935 Home: [address] [phone] [place], [employer] [place] [address] as of this encounter
[2016-12-28] MEDS: Estradiol 1 MG Tab PO SCH (08:38)
[2016-12-28] MEDS: Hydrochlorothiazide/Triamterene 25-37.5 MG Cap PO SCH (08:38)
[2016-12-28] MEDS: Potassium Chloride 10 MEQ Tab.ER PO SCH ×4 (08:38→20:53)
[2016-12-28] MEDS: Metoprolol Succinate 25 MG Tab.ER PO SCH (08:38)
[2016-12-28] MEDS: Calcium Carbonate/Magnesium Oxide/Zinc Oxide Tab PO SCH (08:38)
[2016-12-28] MEDS: Enoxaparin 30 MG/0.3 ML Syringe SUBCUT SCH (08:39)
[2016-12-28] MEDS: Ascorbic Acid 500 MG Tab PO SCH (08:39)
[2016-12-28] MEDS: Furosemide 40 MG Tab PO SCH (08:39)
[2016-12-28] MEDS: COLESTIPOL HCL 1 GM PO SCH ×2 (08:41→19:55)
[2016-12-28 10:00] LABS: CHLORIDE,CL 100 mEq/L (98-106); SODIUM,NA 137 mEq/L (136-145)
[2016-12-28] MEDS: Latanoprost 0.005% Ophth Soln 2.5 ML Bottle EYEBOTH SCH (19:55)
[2016-12-28] MEDS: Fluticasone Propionate Nasal Spray 16 GM Bottle NASBOTH SCH (19:56)
[2016-12-28] MEDS: Zolpidem 5 MG Tab PO PRN (22:22)
[2016-12-29] MEDS: Acetaminophen/HYDROcodone 325-5 MG Tab PO PRN ×4 (00:51→19:41)
[2016-12-29] MEDS: Levothyroxine 88 MCG Tab PO SCH (06:57)
[2016-12-29] MEDS: Pantoprazole 40 MG Tab.CR PO SCH (06:57)
[2016-12-29] MEDS: Calcium Carbonate/Magnesium Oxide/Zinc Oxide Tab PO SCH (07:52)
[2016-12-29] MEDS: Potassium Chloride 10 MEQ Tab.ER PO SCH ×4 (07:52→20:33)
[2016-12-29] MEDS: Ascorbic Acid 500 MG Tab PO SCH (07:52)
[2016-12-29] MEDS: Furosemide 40 MG Tab PO SCH (07:53)
[2016-12-29] MEDS: Hydrochlorothiazide/Triamterene 25-37.5 MG Cap PO SCH (07:53)
[2016-12-29] MEDS: Estradiol 1 MG Tab PO SCH (07:53)
[2016-12-29] MEDS: Enoxaparin 30 MG/0.3 ML Syringe SUBCUT SCH (07:54)
[2016-12-29] MEDS: COLESTIPOL HCL 1 GM PO SCH ×2 (07:55→19:37)
[2016-12-29] MEDS: Metoprolol Succinate 25 MG Tab.ER PO SCH (07:56)
[2016-12-29] MEDS: Fluticasone Propionate Nasal Spray 16 GM Bottle NASBOTH SCH (19:37)
[2016-12-29] MEDS: Latanoprost 0.005% Ophth Soln 2.5 ML Bottle EYEBOTH SCH (19:38)
[2016-12-29] MEDS: Zolpidem 5 MG Tab PO PRN (22:20)
[2016-12-30] MEDS: Acetaminophen/HYDROcodone 325-5 MG Tab PO PRN ×4 (04:23→21:51)
[2016-12-30] MEDS: Pantoprazole 40 MG Tab.CR PO SCH (06:54)
[2016-12-30] MEDS: Levothyroxine 88 MCG Tab PO SCH (06:54)
[2016-12-30] MEDS: Hydrochlorothiazide/Triamterene 25-37.5 MG Cap PO SCH (07:46)
[2016-12-30] MEDS: Calcium Carbonate/Magnesium Oxide/Zinc Oxide Tab PO SCH (07:46)
[2016-12-30] MEDS: Potassium Chloride 10 MEQ Tab.ER PO SCH ×4 (07:47→20:11)
[2016-12-30] MEDS: Estradiol 1 MG Tab PO SCH (07:47)
[2016-12-30] MEDS: Furosemide 40 MG Tab PO SCH (07:47)
[2016-12-30] MEDS: Ascorbic Acid 500 MG Tab PO SCH (07:48)
[2016-12-30] MEDS: Metoprolol Succinate 25 MG Tab.ER PO SCH (07:48)
[2016-12-30] MEDS: Enoxaparin 30 MG/0.3 ML Syringe SUBCUT SCH (07:49)
[2016-12-30] MEDS: COLESTIPOL HCL 1 GM PO SCH ×2 (07:51→20:11)
[2016-12-30] MEDS: cefTRIAXone 1 GM Vial IVPUSH SCH (17:02)
[2016-12-30] MEDS: Latanoprost 0.005% Ophth Soln 2.5 ML Bottle EYEBOTH SCH (20:10)
[2016-12-30] MEDS: Fluticasone Propionate Nasal Spray 16 GM Bottle NASBOTH SCH (20:10)
[2016-12-30] MEDS: Zolpidem 5 MG Tab PO PRN (23:26)
[2016-12-31] MEDS: Acetaminophen/HYDROcodone 325-5 MG Tab PO PRN ×2 (06:34→10:05)
[2016-12-31] MEDS: Pantoprazole 40 MG Tab.CR PO SCH (06:34)
[2016-12-31] MEDS: Levothyroxine 88 MCG Tab PO SCH (06:34)
[2016-12-31] MEDS: Calcium Carbonate/Magnesium Oxide/Zinc Oxide Tab PO SCH (07:31)
[2016-12-31] MEDS: Hydrochlorothiazide/Triamterene 25-37.5 MG Cap PO SCH (07:32)
[2016-12-31] MEDS: COLESTIPOL HCL 1 GM PO SCH ×2 (07:32→20:52)
[2016-12-31] MEDS: Estradiol 1 MG Tab PO SCH (07:32)
[2016-12-31] MEDS: Furosemide 40 MG Tab PO SCH (07:33)
[2016-12-31] MEDS: Potassium Chloride 10 MEQ Tab.ER PO SCH ×4 (07:33→20:52)
[2016-12-31] MEDS: Enoxaparin 30 MG/0.3 ML Syringe SUBCUT SCH (07:34)
[2016-12-31] MEDS: Ascorbic Acid 500 MG Tab PO SCH (07:35)
[2016-12-31] MEDS: Metoprolol Succinate 25 MG Tab.ER PO SCH (07:35)
[2016-12-31] MEDS: cefTRIAXone 1 GM Vial IVPUSH SCH (17:16)
[2016-12-31] MEDS: Latanoprost 0.005% Ophth Soln 2.5 ML Bottle EYEBOTH SCH (20:51)
[2016-12-31] MEDS: Fluticasone Propionate Nasal Spray 16 GM Bottle NASBOTH SCH (20:51)
[2017-01-01] MEDS: Acetaminophen/HYDROcodone 325-5 MG Tab PO PRN (02:27)
[2017-01-01] MEDS: Levothyroxine 88 MCG Tab PO SCH (06:57)
[2017-01-01] MEDS: Pantoprazole 40 MG Tab.CR PO SCH (06:57)
[2017-01-01] MEDS: Enoxaparin 30 MG/0.3 ML Syringe SUBCUT SCH (07:53)
[2017-01-01] MEDS: Calcium Carbonate/Magnesium Oxide/Zinc Oxide Tab PO SCH (07:53)
[2017-01-01] MEDS: Hydrochlorothiazide/Triamterene 25-37.5 MG Cap PO SCH (07:54)
[2017-01-01] MEDS: Ascorbic Acid 500 MG Tab PO SCH (07:54)
[2017-01-01] MEDS: Furosemide 40 MG Tab PO SCH (07:54)
[2017-01-01] MEDS: Estradiol 1 MG Tab PO SCH (07:54)
[2017-01-01] MEDS: Metoprolol Succinate 25 MG Tab.ER PO SCH (07:54)
[2017-01-01] MEDS: Potassium Chloride 10 MEQ Tab.ER PO SCH ×4 (07:54→20:18)
[2017-01-01] MEDS: COLESTIPOL HCL 1 GM PO SCH ×2 (07:58→20:20)
[2017-01-01] MEDS: cefTRIAXone 1 GM Vial IVPUSH SCH (17:52)
[2017-01-01] MEDS: Acetaminophen 325 MG Tab PO PRN ×2 (17:54→22:58)
[2017-01-01] MEDS: Latanoprost 0.005% Ophth Soln 2.5 ML Bottle EYEBOTH SCH (20:20)
[2017-01-01] MEDS: Fluticasone Propionate Nasal Spray 16 GM Bottle NASBOTH SCH (20:20)
[2017-01-02] MEDS: Acetaminophen 325 MG Tab PO PRN ×3 (03:49→17:35)
[2017-01-02] MEDS: Pantoprazole 40 MG Tab.CR PO SCH (06:41)
[2017-01-02] MEDS: Levothyroxine 88 MCG Tab PO SCH (06:41)
[2017-01-02] MEDS: Furosemide 40 MG Tab PO SCH (08:06)
[2017-01-02] MEDS: Ascorbic Acid 500 MG Tab PO SCH (08:06)
[2017-01-02] MEDS: Estradiol 1 MG Tab PO SCH (08:06)
[2017-01-02] MEDS: Hydrochlorothiazide/Triamterene 25-37.5 MG Cap PO SCH (08:06)
[2017-01-02] MEDS: Calcium Carbonate/Magnesium Oxide/Zinc Oxide Tab PO SCH (08:06)
[2017-01-02] MEDS: Potassium Chloride 10 MEQ Tab.ER PO SCH ×4 (08:06→20:03)
[2017-01-02] MEDS: COLESTIPOL HCL 1 GM PO SCH ×2 (08:07→20:02)
[2017-01-02] MEDS: Enoxaparin 30 MG/0.3 ML Syringe SUBCUT SCH (08:07)
[2017-01-02] MEDS ORDERED: Metoprolol Succinate 100 MG Tab.ER ONE (08:25)
[2017-01-02] MEDS: Metoprolol Succinate 25 MG Tab.ER PO SCH (10:57)
[2017-01-02] MEDS: cefTRIAXone 1 GM Vial IVPUSH SCH (17:37)
[2017-01-02] MEDS: Fluticasone Propionate Nasal Spray 16 GM Bottle NASBOTH SCH (20:03)
[2017-01-02] MEDS: Latanoprost 0.005% Ophth Soln 2.5 ML Bottle EYEBOTH SCH (20:03)
[2017-01-02] MEDS: Zolpidem 5 MG Tab PO PRN (22:52)
[2017-01-02] MEDS: Acetaminophen/HYDROcodone 325-5 MG Tab PO PRN (23:09)
[2017-01-03] MEDS: Acetaminophen 325 MG Tab PO PRN (05:53)
[2017-01-03] MEDS: Levothyroxine 88 MCG Tab PO SCH (06:24)
[2017-01-03] MEDS: Pantoprazole 40 MG Tab.CR PO SCH (06:24)
[2017-01-03] MEDS: Enoxaparin 30 MG/0.3 ML Syringe SUBCUT SCH (07:53)
[2017-01-03] MEDS: Calcium Carbonate/Magnesium Oxide/Zinc Oxide Tab PO SCH (07:54)
[2017-01-03] MEDS: Ascorbic Acid 500 MG Tab PO SCH (07:54)
[2017-01-03] MEDS: Estradiol 1 MG Tab PO SCH (07:54)
[2017-01-03] MEDS: Metoprolol Succinate 25 MG Tab.ER PO SCH (07:54)
[2017-01-03] MEDS: Furosemide 40 MG Tab PO SCH (07:54)
[2017-01-03] MEDS: Potassium Chloride 10 MEQ Tab.ER PO SCH ×4 (07:55→20:00)
[2017-01-03] MEDS: Hydrochlorothiazide/Triamterene 25-37.5 MG Cap PO SCH (07:55)
[2017-01-03] MEDS: COLESTIPOL HCL 1 GM PO SCH ×2 (07:59→19:49)
[2017-01-03] MEDS: Acetaminophen/HYDROcodone 325-5 MG Tab PO PRN ×3 (09:47→22:30)
[2017-01-03] MEDS: cefTRIAXone 1 GM Vial IVPUSH SCH (17:22)
[2017-01-03] MEDS: Fluticasone Propionate Nasal Spray 16 GM Bottle NASBOTH SCH (19:48)
[2017-01-03] MEDS: Latanoprost 0.005% Ophth Soln 2.5 ML Bottle EYEBOTH SCH (19:48)
[2017-01-03] MEDS: Zolpidem 5 MG Tab PO PRN (22:29)
[2017-01-04] MEDS: Levothyroxine 88 MCG Tab PO SCH (06:42)
[2017-01-04] MEDS: Pantoprazole 40 MG Tab.CR PO SCH (06:42)
[2017-01-04] MEDS: Enoxaparin 30 MG/0.3 ML Syringe SUBCUT SCH (08:11)
[2017-01-04] MEDS: Calcium Carbonate/Magnesium Oxide/Zinc Oxide Tab PO SCH (08:12)
[2017-01-04] MEDS: Potassium Chloride 10 MEQ Tab.ER PO SCH ×4 (08:12→19:59)
[2017-01-04] MEDS: Furosemide 40 MG Tab PO SCH (08:12)
[2017-01-04] MEDS: Hydrochlorothiazide/Triamterene 25-37.5 MG Cap PO SCH (08:12)
[2017-01-04] MEDS: Metoprolol Succinate 25 MG Tab.ER PO SCH (08:12)
[2017-01-04] MEDS: Ascorbic Acid 500 MG Tab PO SCH (08:12)
[2017-01-04] MEDS: Estradiol 1 MG Tab PO SCH (08:13)
[2017-01-04] MEDS: COLESTIPOL HCL 1 GM PO SCH ×2 (08:16→20:01)
[2017-01-04] MEDS: Acetaminophen/HYDROcodone 325-5 MG Tab PO PRN ×3 (09:05→21:25)
[2017-01-04] MEDS: guaiFENesin 200 MG Tab PO SCH ×2 (10:02→19:59)
[2017-01-04] MEDS: cefTRIAXone 1 GM Vial IVPUSH SCH (17:27)
[2017-01-04] MEDS: Latanoprost 0.005% Ophth Soln 2.5 ML Bottle EYEBOTH SCH (20:00)
[2017-01-04] MEDS: Fluticasone Propionate Nasal Spray 16 GM Bottle NASBOTH SCH (20:00)
[2017-01-04] MEDS: Zolpidem 5 MG Tab PO PRN (21:21)
[2017-01-05] MEDS: Acetaminophen/HYDROcodone 325-5 MG Tab PO PRN ×4 (05:22→23:37)
[2017-01-05] MEDS: Levothyroxine 88 MCG Tab PO SCH (06:07)
[2017-01-05] MEDS: Pantoprazole 40 MG Tab.CR PO SCH (06:08)
[2017-01-05] MEDS: Calcium Carbonate/Magnesium Oxide/Zinc Oxide Tab PO SCH (08:18)
[2017-01-05] MEDS: COLESTIPOL HCL 1 GM PO SCH ×2 (08:18→19:35)
[2017-01-05] MEDS: Estradiol 1 MG Tab PO SCH (08:19)
[2017-01-05] MEDS: Hydrochlorothiazide/Triamterene 25-37.5 MG Cap PO SCH (08:19)
[2017-01-05] MEDS: Furosemide 40 MG Tab PO SCH (08:20)
[2017-01-05] MEDS: Potassium Chloride 10 MEQ Tab.ER PO SCH ×4 (08:20→20:37)
[2017-01-05] MEDS: Enoxaparin 30 MG/0.3 ML Syringe SUBCUT SCH (08:20)
[2017-01-05] MEDS: guaiFENesin 200 MG Tab PO SCH ×2 (08:21→19:34)
[2017-01-05] MEDS: Metoprolol Succinate 25 MG Tab.ER PO SCH (08:21)
[2017-01-05] MEDS: Ascorbic Acid 500 MG Tab PO SCH (08:25)
[2017-01-05] MEDS: cefTRIAXone 1 GM Vial IVPUSH SCH (17:14)
[2017-01-05] MEDS: Fluticasone Propionate Nasal Spray 16 GM Bottle NASBOTH SCH (19:35)
[2017-01-05] MEDS: Latanoprost 0.005% Ophth Soln 2.5 ML Bottle EYEBOTH SCH (19:35)
[2017-01-05] MEDS: Zolpidem 5 MG Tab PO PRN (23:36)
[2017-01-06] MEDS: Acetaminophen/HYDROcodone 325-5 MG Tab PO PRN ×4 (06:10→23:01)
[2017-01-06] MEDS: Levothyroxine 88 MCG Tab PO SCH (06:10)
[2017-01-06] MEDS: Pantoprazole 40 MG Tab.CR PO SCH (06:10)
[2017-01-06] MEDS: COLESTIPOL HCL 1 GM PO SCH ×2 (08:27→20:39)
[2017-01-06] MEDS: Calcium Carbonate/Magnesium Oxide/Zinc Oxide Tab PO SCH (08:28)
[2017-01-06] MEDS: Potassium Chloride 10 MEQ Tab.ER PO SCH ×4 (08:28→20:44)
[2017-01-06] MEDS: Metoprolol Succinate 25 MG Tab.ER PO SCH (08:29)
[2017-01-06] MEDS: Furosemide 40 MG Tab PO SCH (08:29)
[2017-01-06] MEDS: Ascorbic Acid 500 MG Tab PO SCH (08:30)
[2017-01-06] MEDS: guaiFENesin 200 MG Tab PO SCH ×2 (08:30→20:39)
[2017-01-06] MEDS: Estradiol 1 MG Tab PO SCH (08:30)
[2017-01-06] MEDS: Hydrochlorothiazide/Triamterene 25-37.5 MG Cap PO SCH (08:30)
[2017-01-06] MEDS: Enoxaparin 30 MG/0.3 ML Syringe SUBCUT SCH (08:31)
[2017-01-06] MEDS: Acetaminophen 325 MG Tab PO PRN (14:42)
[2017-01-06] MEDS: cefTRIAXone 1 GM Vial IVPUSH SCH (17:25)
[2017-01-06] MEDS: Latanoprost 0.005% Ophth Soln 2.5 ML Bottle EYEBOTH SCH (20:40)
[2017-01-06] MEDS: Fluticasone Propionate Nasal Spray 16 GM Bottle NASBOTH SCH (20:40)
[2017-01-06] MEDS: Zolpidem 5 MG Tab PO PRN (23:01)
[2017-01-07] MEDS: Pantoprazole 40 MG Tab.CR PO SCH (06:52)
[2017-01-07] MEDS: Levothyroxine 88 MCG Tab PO SCH (06:52)
[2017-01-07] MEDS: Acetaminophen/HYDROcodone 325-5 MG Tab PO PRN ×3 (06:53→23:25)
[2017-01-07] MEDS: Estradiol 1 MG Tab PO SCH (07:25)
[2017-01-07] MEDS: Hydrochlorothiazide/Triamterene 25-37.5 MG Cap PO SCH (07:25)
[2017-01-07] MEDS: Furosemide 40 MG Tab PO SCH (07:25)
[2017-01-07] MEDS: Potassium Chloride 10 MEQ Tab.ER PO SCH ×4 (07:26→20:46)
[2017-01-07] MEDS: guaiFENesin 200 MG Tab PO SCH ×2 (07:26→19:34)
[2017-01-07] MEDS: Calcium Carbonate/Magnesium Oxide/Zinc Oxide Tab PO SCH (07:26)
[2017-01-07] MEDS: Ascorbic Acid 500 MG Tab PO SCH (07:26)
[2017-01-07] MEDS: Enoxaparin 30 MG/0.3 ML Syringe SUBCUT SCH (07:27)
[2017-01-07] MEDS: Metoprolol Succinate 25 MG Tab.ER PO SCH (07:27)
[2017-01-07] MEDS: COLESTIPOL HCL 1 GM PO SCH ×2 (07:28→19:36)
[2017-01-07] MEDS: guaiFENesin/Dextromethorphan 100-10 MG/5 ML Soln 5 ML Cup PO PRN ×2 (16:13→23:25)
[2017-01-07] MEDS: cefTRIAXone 1 GM Vial IVPUSH SCH (17:17)
[2017-01-07] MEDS: Fluticasone Propionate Nasal Spray 16 GM Bottle NASBOTH SCH (19:36)
[2017-01-07] MEDS: Latanoprost 0.005% Ophth Soln 2.5 ML Bottle EYEBOTH SCH (19:37)
[2017-01-07] MEDS: Zolpidem 5 MG Tab PO PRN (23:25)
[2017-01-08] MEDS: Acetaminophen/HYDROcodone 325-5 MG Tab PO PRN ×3 (05:41→23:36)
[2017-01-08] MEDS: Ascorbic Acid 500 MG Tab PO SCH (07:35)
[2017-01-08] MEDS: Estradiol 1 MG Tab PO SCH (07:35)
[2017-01-08] MEDS: Hydrochlorothiazide/Triamterene 25-37.5 MG Cap PO SCH (07:35)
[2017-01-08] MEDS: Furosemide 40 MG Tab PO SCH (07:35)
[2017-01-08] MEDS: Enoxaparin 30 MG/0.3 ML Syringe SUBCUT SCH (07:36)
[2017-01-08] MEDS: Calcium Carbonate/Magnesium Oxide/Zinc Oxide Tab PO SCH (07:36)
[2017-01-08] MEDS: guaiFENesin 200 MG Tab PO SCH ×2 (07:36→19:44)
[2017-01-08] MEDS: Metoprolol Succinate 25 MG Tab.ER PO SCH (07:36)
[2017-01-08] MEDS: Potassium Chloride 10 MEQ Tab.ER PO SCH ×4 (07:36→20:31)
[2017-01-08] MEDS: Levothyroxine 88 MCG Tab PO SCH (07:38)
[2017-01-08] MEDS: Pantoprazole 40 MG Tab.CR PO SCH (07:38)
[2017-01-08] MEDS: COLESTIPOL HCL 1 GM PO SCH ×2 (07:41→19:45)
[2017-01-08] MEDS: guaiFENesin/Dextromethorphan 100-10 MG/5 ML Soln 5 ML Cup PO PRN ×2 (11:28→23:36)
[2017-01-08] MEDS: cefTRIAXone 1 GM Vial IVPUSH SCH (17:46)
[2017-01-08] MEDS: Latanoprost 0.005% Ophth Soln 2.5 ML Bottle EYEBOTH SCH (19:45)
[2017-01-08] MEDS: Fluticasone Propionate Nasal Spray 16 GM Bottle NASBOTH SCH (19:45)
[2017-01-08] MEDS: Zolpidem 5 MG Tab PO PRN (23:36)
[2017-01-09] MEDS: Pantoprazole 40 MG Tab.CR PO SCH (08:00)
[2017-01-09] MEDS: Levothyroxine 88 MCG Tab PO SCH (08:00)
[2017-01-09] MEDS: Ascorbic Acid 500 MG Tab PO SCH (08:03)
[2017-01-09] MEDS: guaiFENesin 200 MG Tab PO SCH ×2 (08:03→19:42)
[2017-01-09] MEDS: Metoprolol Succinate 25 MG Tab.ER PO SCH (08:03)
[2017-01-09] MEDS: Calcium Carbonate/Magnesium Oxide/Zinc Oxide Tab PO SCH (08:04)
[2017-01-09] MEDS: Furosemide 40 MG Tab PO SCH (08:04)
[2017-01-09] MEDS: Potassium Chloride 10 MEQ Tab.ER PO SCH ×4 (08:04→20:17)
[2017-01-09] MEDS: Estradiol 1 MG Tab PO SCH (08:05)
[2017-01-09] MEDS: Hydrochlorothiazide/Triamterene 25-37.5 MG Cap PO SCH (08:05)
[2017-01-09] MEDS: Acetaminophen/HYDROcodone 325-5 MG Tab PO PRN ×3 (08:05→21:38)
[2017-01-09] MEDS: COLESTIPOL HCL 1 GM PO SCH ×2 (08:06→19:42)
[2017-01-09] MEDS: Enoxaparin 30 MG/0.3 ML Syringe SUBCUT SCH (08:06)
[2017-01-09] MEDS: guaiFENesin/Dextromethorphan 100-10 MG/5 ML Soln 5 ML Cup PO PRN ×2 (16:09→21:38)
[2017-01-09] MEDS: Latanoprost 0.005% Ophth Soln 2.5 ML Bottle EYEBOTH SCH (19:43)
[2017-01-09] MEDS: Fluticasone Propionate Nasal Spray 16 GM Bottle NASBOTH SCH (19:43)
[2017-01-09] MEDS: Zolpidem 5 MG Tab PO PRN (21:38)
[2017-01-10] MEDS: Acetaminophen/HYDROcodone 325-5 MG Tab PO PRN ×3 (03:57→21:52)
[2017-01-10] MEDS: Levothyroxine 88 MCG Tab PO SCH (06:48)
[2017-01-10] MEDS: Pantoprazole 40 MG Tab.CR PO SCH (06:49)
[2017-01-10] MEDS: Hydrochlorothiazide/Triamterene 25-37.5 MG Cap PO SCH (08:04)
[2017-01-10] MEDS: guaiFENesin 200 MG Tab PO SCH ×2 (08:04→19:08)
[2017-01-10] MEDS: Furosemide 40 MG Tab PO SCH (08:04)
[2017-01-10] MEDS: Ascorbic Acid 500 MG Tab PO SCH (08:04)
[2017-01-10] MEDS: Calcium Carbonate/Magnesium Oxide/Zinc Oxide Tab PO SCH (08:04)
[2017-01-10] MEDS: Potassium Chloride 10 MEQ Tab.ER PO SCH ×4 (08:05→20:23)
[2017-01-10] MEDS: Estradiol 1 MG Tab PO SCH (08:05)
[2017-01-10] MEDS: Enoxaparin 30 MG/0.3 ML Syringe SUBCUT SCH (08:05)
[2017-01-10] MEDS: COLESTIPOL HCL 1 GM PO SCH ×2 (08:06→19:05)
[2017-01-10] MEDS: Metoprolol Succinate 25 MG Tab.ER PO SCH (08:42)
[2017-01-10] MEDS: guaiFENesin/Dextromethorphan 100-10 MG/5 ML Soln 5 ML Cup PO PRN ×2 (10:43→21:53)
--- NOTE | 2017-01-10 14:05 | PN ---
DATE: 01/10/2017 S: Amber Huston is in 14 day recertification, status post hip prosthesis and difficulty getting out of bed, so I am going to keep her another day or 2 for PT/OT. SUE/RANI /[id number]
[2017-01-10] MEDS: Fluticasone Propionate Nasal Spray 16 GM Bottle NASBOTH SCH (19:06)
[2017-01-10] MEDS: Acetaminophen 325 MG Tab PO PRN (19:07)
[2017-01-10] MEDS: Latanoprost 0.005% Ophth Soln 2.5 ML Bottle EYEBOTH SCH (19:08)
[2017-01-10] MEDS: Zolpidem 5 MG Tab PO PRN (21:52)
[2017-01-11] MEDS: Pantoprazole 40 MG Tab.CR PO SCH (06:44)
[2017-01-11] MEDS: Levothyroxine 88 MCG Tab PO SCH (06:44)
[2017-01-11 07:48] VITALS: BP 142/75
[2017-01-11] MEDS: guaiFENesin 200 MG Tab PO SCH (08:14)
[2017-01-11] MEDS: Calcium Carbonate/Magnesium Oxide/Zinc Oxide Tab PO SCH (08:14)
[2017-01-11] MEDS: Ascorbic Acid 500 MG Tab PO SCH (08:14)
[2017-01-11] MEDS: Estradiol 1 MG Tab PO SCH (08:15)
[2017-01-11] MEDS: Potassium Chloride 10 MEQ Tab.ER PO SCH ×3 (08:15→16:39)
[2017-01-11] MEDS: Hydrochlorothiazide/Triamterene 25-37.5 MG Cap PO SCH (08:15)
[2017-01-11] MEDS: Furosemide 40 MG Tab PO SCH (08:16)
[2017-01-11] MEDS: Metoprolol Succinate 25 MG Tab.ER PO SCH (08:16)
[2017-01-11] MEDS: Enoxaparin 30 MG/0.3 ML Syringe SUBCUT SCH (08:17)
[2017-01-11] MEDS: COLESTIPOL HCL 1 GM PO SCH (08:17)
--- NOTE | 2017-01-11 08:58 | DISCH ---
HOSPITAL COURSE: This lady white female underwent a left hip replacement, brought back here in swing bed for PT, did nicely. At time of discharge, she was up moving around requiring pain medications. Still requiring PT. Lab here in the hospital, the hemoglobin was hanging at 9.2 from the surgery. She will go home on iron. Panel-8 looked good. Urinalysis, she had a UTI. She was started on IV Rocephin, responded nicely. I had a little bit of a low magnesium, so we started on magnesium supplements. DISPOSITION: The patient was discharged home. She will be going to home health, because she is restricted to home, requires a home PT and home nursing care due to the recent total hip and inability to ambulate very far. DISCHARGE MEDICATIONS: Hospital medications, minus estradiol and Lovenox. DISCHARGE DIAGNOSIS: 1. STATUS POST LEFT HIP REPLACEMENT. 2. URINARY TRACT INFECTION. 3. HYPERTENSION. 4. HYPOTHYROIDISM. DEIDRE /[id number]
[2017-01-11] MEDS: Acetaminophen 325 MG Tab PO PRN (14:22)
[2017-01-11] MEDS: guaiFENesin/Dextromethorphan 100-10 MG/5 ML Soln 5 ML Cup PO PRN (14:22)
[2017-01-11] MEDS: Acetaminophen/HYDROcodone 325-5 MG Tab PO PRN (16:39)
== END 2017-01-11 17:30 | disposition home or self-care (01) | DRG 560 ==
LOC: UNDOADMIN 11:57 → CC.MS 11:57
PROVIDERS: ADMIT General Practice; ATTEND General Practice
DX: Z47.1 Aftercare following joint replacement surgery (principal); N39.0 Urinary tract infection, site not specified; Z96.642 Presence of left artificial hip joint; E83.42 Hypomagnesemia; I10 Essential (primary) hypertension; E03.9 Hypothyroidism, unspecified; K21.9 Gastro-esophageal reflux disease without esophagitis; G47.00 Insomnia, unspecified
CPT/HCPCS: 36415; 80048; 81001; 83735; 85025; 87086; 87088; 87186; 97110-GP; 97161-GP; 97530-GP; A9270-GY; J0696; J1650

== ENCOUNTER 2020-07-19 15:23 | Emergency (ER) | payer MEDICARE, BC, MEDICAID ==
[2020-07-19] MEDS ORDERED: Clindamycin HCl 150 MG Cap PO ONE (15:24)
[2020-07-19 15:59] VITALS: BP 141/71; PULSE 88
[2020-07-19] MEDS ORDERED: cefTRIAXone 1 GM Vial IM ONE (16:01)
[2020-07-19] MEDS ORDERED: Take Home: Clindamycin HCl 150 MG Cap, 6 Cap Pack PO ONE (16:02)
--- NOTE | 2020-07-19 16:18 | EDM.PDOC ---
ED HPI GENERAL MEDICAL PROBLEM - General Chief Complaint: General Stated Complaint: R) foot second toe infection Time Seen by Provider: 07/19/20 16:00 Source of Information: Reports: Patient History Limitations: Reports: No Limitations - History of Present Illness INITIAL COMMENTS - FREE TEXT/NARRATIVE: Patient presents to ER with complaints of right foot pain. Had his toenails removed recently by Dr. Tabor on Tuesday due to toenail fungus. States had "gotten so bad that was unable to even trim them anymore". She has been soaking her feet daily, trying to "take good care of them". Noted more discomfort and redness now in her foot. The redness is now spreading up in to the mid foot and her foot feels warm to the touch. Has only had a small amount of drainage from the 2 open areas with yellowish drainage on the bandage. Onset: Gradual Duration: Day(s): Location: Reports: Lower Extremity, Right Quality: Reports: Ache Severity: Moderate Right Toe-Long Pain Score (Numeric/FACES): 8 - Related Data Allergies Allergy/AdvReac Type Severity Reaction Status Date / Time amoxicillin Allergy Nausea and Verified 07/19/20 15:29 Vomiting ampicillin Allergy Nausea and Verified 07/19/20 15:29 Vomiting aspirin Allergy Diarrhea Verified 07/19/20 15:29 cephalexin Allergy Cannot Verified 07/19/20 15:29 Remember clarithromycin [From Biaxin] Allergy Stomach Verified 07/19/20 15:29 Ache doxycycline Allergy Nausea and Verified 07/19/20 15:29 Vomiting levofloxacin [From Levaquin] Allergy Hives Verified 07/19/20 15:29 ofloxacin [From Floxin] Allergy Nausea and Verified 07/19/20 15:29 Vomiting Penicillins Allergy Cannot Verified 07/19/20 15:29 Remember Sulfa (Sulfonamide Allergy Hives Verified 07/19/20 15:29 Antibiotics) sulfamethoxazole Allergy Rash Verified 07/19/20 15:29 [From Bactrim] trimethoprim [From Bactrim] Allergy Rash Verified 07/19/20 15:29 trovafloxacin [From Trovan] Allergy Cannot Verified 07/19/20 15:29 Remember Home Meds: Home Meds Ascorbate Calcium [Vitamin C] 500 mg PO DAILY 08/23/15 [History] Cholecalciferol (Vitamin D3) [Vitamin D3] 2,000 units PO DAILY 08/23/15 [History] Fish Oil/[place]-3 Fatty Acids [Fish Oil] 1 each PO DAILY PRN 08/23/15 [History] Fluticasone Propionate [Flonase] 1 spray NASBOTH BEDTIME 08/23/15 [History] Latanoprost [Xalatan 0.005% Ophth Soln] 1 drop EYEBOTH BEDTIME 08/23/15 [History] Levothyroxine Sodium 88 mcg PO DAILY 08/23/15 [History] Meclizine [Antivert] 25 mg PO TID PRN 08/23/15 [History] Metoprolol Succinate [Toprol XL] 50 mg PO DAILY 08/23/15 [History] Multivitamin [Daily Multiple Vitamin] 1 tab PO DAILY 08/23/15 [History] Omeprazole 20 mg PO DAILY 08/23/15 [History] Triamterene/Hydrochlorothiazid [Triamterene-HCTZ 37.5-25 MG] 1 each PO DAILY 08/23/15 [History] Vitamin E 400 unit PO DAILY 08/23/15 [History] diphenhydrAMINE [Benadryl] 25 mg PO Q4H PRN 08/23/15 [History] Calcium Carb/D3/Magnesium/Zinc [Emeterio Mag Zinc-D Tablet] 1 each PO DAILY 12/27/16 [History] Colestipol [Colestipol HCl] 1 gm PO BID 12/27/16 [History] Flaxseed Oil [Flaxseed] 1,000 mg PO DAILY 12/27/16 [History] Furosemide 40 mg PO DAILY 12/27/16 [History] Potassium Chloride [Klor-Con M20] 20 meq PO QID 12/27/16 [History] Ubidecarenone [Co Q-10] 400 mg PO DAILY 12/27/16 [History] Vitamin B Complex 1 cap PO DAILY 12/27/16 [History] Magnesium Oxide 250 mg PO BIDM tablet 01/11/17 [Rx] Past Medical History HEENT History: Reports: Allergic Rhinitis Cardiovascular History: Reports: Aneurysm, High Cholesterol, Hypertension, Other (See Below) Other Cardiovascular History: holter monitor showed in 2003 Paroxysmal SVT, 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 Respiratory History: Reports: Sleep Apnea Gastrointestinal History: Reports: GERD, Other (See Below) Other Gastrointestinal History: gastric ulcer, abdominal pain suggestive of IBS Musculoskeletal History: Reports: Arthritis, Back Pain, Chronic, Fibromyalgia, Other (See Below) Other Musculoskeletal History: bursitis Neurological History: Reports: Migraines Psychiatric History: Reports: Anxiety, Depression Endocrine/Metabolic History: Reports: Hypothyroidism, Osteoporosis Hematologic History: Reports: Anemia - Infectious Disease History Infectious Disease History: Reports: Rheumatic Fever - Past Surgical History Cardiovascular Surgical History: Reports: None Respiratory Surgical History: Reports: None GI Surgical History: Reports: None Endocrine Surgical History: Reports: None Neurological Surgical History: Reports: None Musculoskeletal Surgical History: Reports: None Social & Family History - Family History Family Medical History: Noncontributory - Tobacco Use Smoking Status *Q: Never Smoker Second Hand Smoke Exposure: No - Caffeine Use Caffeine Use: Reports: None - Recreational Drug Use Recreational Drug Use: No ED ROS GENERAL - Review of Systems Review Of Systems: See Below Constitutional: Denies: Fever, Chills, Malaise, Weakness, Fatigue HEENT: Reports: No Symptoms Respiratory: Reports: No Symptoms Cardiovascular: Reports: No Symptoms Endocrine: Reports: No Symptoms GI/Abdominal: Reports: No Symptoms : Reports: No Symptoms Musculoskeletal: Reports: Foot Pain Skin: Reports: Erythema, Wound (toenails removed from the great toe and 2nd digit) Neurological: Reports: No Symptoms ED EXAM, GENERAL - Physical Exam Exam: See Below Exam Limited By: No Limitations General Appearance: Alert, WD/WN, No Apparent Distress Extremities: Increased Warmth, Redness, Other (foot pain, tender with palpation. Has open areas where toenails were removed. Scant serous drainage on bandage. Skin marked for patient to follow redness. ) Neurological: Alert, Oriented Course - Vital Signs Last Recorded V/S: Last Vital Signs Temp 98 F 07/19/20 15:58 Pulse 88 07/19/20 15:58 Resp 18 07/19/20 15:58 BP 141/71 H 07/19/20 15:58 Pulse Ox 95 07/19/20 15:58 - Orders/Labs/Meds Meds: Medications Discontinued Medications Generic Name Dose Route Start Last Admin Trade Name Freq PRN Reason Stop Dose Admin Ceftriaxone Sodium 1 gm 07/19/20 16:01 Rocephin IM 07/19/20 16:02 ONETIME ONE Clindamycin HCl 2 packet 07/19/20 16:02 Take Home: Clindamycin Hcl 150 Mg, 6 Cap Pack PO 07/19/20 16:03 ONETIME ONE Lidocaine HCl 5 ml 07/19/20 16:02 Xylocaine-Mpf 1% INJECT 07/19/20 16:03 ONETIME ONE - Re-Assessments/Exams Free Text/Narrative Re-Assessment/Exam: 07/19/20 16:21 Rocephin given IM. patient states has had multiple times and tolerated well. Departure - Departure Time of Disposition: 16:20 Disposition: Home, Self-Care 01 Condition: Good Clinical Impression: Skin infection - Discharge Information *PRESCRIPTION DRUG MONITORING PROGRAM REVIEWED*: No *COPY OF PRESCRIPTION DRUG MONITORING REPORT IN PATIENT ABHISHEK: No Referrals: Song Cao MD [Primary Care Provider] - Additional Instructions: 1. Keep wounds clean and dry 2. Cover to protect exposed areas 3. Soak as recommended by podiatry 4. Clindamycin 300 mg four times a day for 7 days 5. Follow up with Dr. Tabor Sepsis Event Note (ED) - Evaluation Sepsis Screening Result: No Definite Risk - Focused Exam Vital Signs: Vital Signs Temp Pulse Resp BP Pulse Ox 07/19/20 15:58 98 F 88 18 141/71 H 95
== END 2020-07-19 16:42 | disposition home or self-care (01) ==
LOC: CC.ED 15:23
DX: L08.9 Local infection of the skin and subcutaneous tissue, unspecified (principal); I10 Essential (primary) hypertension; K21.9 Gastro-esophageal reflux disease without esophagitis; E03.9 Hypothyroidism, unspecified; Z88.1 Allergy status to other antibiotic agents; Z88.6 Allergy status to analgesic agent; Z88.0 Allergy status to penicillin; Z88.2 Allergy status to sulfonamides; Z79.899 Other long term (current) drug therapy
CPT/HCPCS: 96372; 99283; A9270-GY; J0696; J2001

== ENCOUNTER 2021-03-08 11:55 | Emergency (ER) | payer MEDICARE, BC ==
[2021-03-08 12:11] VITALS: BP 113/69; PULSE 90
--- NOTE | 2021-03-08 12:43 | EDM.PDOC ---
ED HPI GENERAL MEDICAL PROBLEM - General Chief Complaint: Respiratory Problem Stated Complaint: Chest congestion Time Seen by Provider: 03/08/21 12:13 Source of Information: Reports: Patient History Limitations: Reports: No Limitations - History of Present Illness INITIAL COMMENTS - FREE TEXT/NARRATIVE: This patient is an 86 year old female that presents to the ER. Patient reports for 2 days having congestion, drainage, scant productive cough. Patient reports that her son and she had on Tuesday, She reports she shook about 200 hands. Patient reports also having a UTI about 2 weeks ago, taking abx, she just compelted and no longer having urine symptoms. She reports while on abx having diarrhea. She currently deneis rojas, dizziness, n, v, d, f, chest pain, sh ortness of breath, urine symptoms. Onset Date: 03/06/21 Duration: Day(s): (2) Severity: Mild Improves with: Reports: None Worsens with: Reports: None Associated Symptoms: Reports: Cough, cough w sputum. Denies: Confusion, Chest Pain, Diaphoresis, Fever/Chills, Headaches, Loss of Appetite, Malaise, Nausea/Vomiting, Rash, Seizure, Shortness of Breath, Syncope, Weakness Past Medical History Other HEENT History: Sinus congestion and cough Social & Family History - Tobacco Use Tobacco Use Status *Q: Never Tobacco User Second Hand Smoke Exposure: No ED ROS GENERAL - Review of Systems Review Of Systems: See Below Constitutional: Reports: No Symptoms HEENT: Reports: Rhinitis, Sinus Problem Respiratory: Reports: Cough, Sputum. Denies: Shortness of Breath, Wheezing, Pleuritic Chest Pain, Hemoptysis Cardiovascular: Reports: No Symptoms Endocrine: Reports: No Symptoms GI/Abdominal: Reports: Diarrhea (mild, improving since completion of abx.). Denies: Abdominal Pain : Reports: No Symptoms Musculoskeletal: Reports: No Symptoms Skin: Reports: No Symptoms Neurological: Reports: No Symptoms Psychiatric: Reports: No Symptoms Hematologic/Lymphatic: Reports: No Symptoms Immunologic: Reports: No Symptoms ED EXAM, GENERAL - Physical Exam Exam: See Below Exam Limited By: No Limitations General Appearance: Alert, WD/WN, No Apparent Distress Eye Exam: Bilateral Eye: Normal Inspection, PERRL Ears: Normal External Exam, Normal Canal, Hearing Grossly Normal, Normal TMs Ear Exam: Bilateral Ear: Auricle Normal, Canal Normal, TM normal Nose: Normal Inspection, Normal Mucosa, No Blood Throat/Mouth: Normal Inspection, Normal Lips, Normal Teeth, Normal Gums, Normal Oropharynx, Normal Voice, No Airway Compromise Head: Atraumatic, Normocephalic Neck: Normal Inspection, Supple, Non-Tender, Full Range of Motion Respiratory/Chest: No Respiratory Distress, Lungs Clear, Normal Breath Sounds, No Accessory Muscle Use Cardiovascular: Normal Peripheral Pulses, Regular Rate, Rhythm, No Edema, No Gallop, No JVD, No Murmur, No Rub Peripheral Pulses: 2+: Radial (L), Radial (R), Posterior Tibial (L), Posterior Tibial (R) GI/Abdominal: Soft, Non-Tender Back Exam: Normal Inspection, Full Range of Motion. No: CVA Tenderness (L), CVA Tenderness (R) Extremities: Normal Inspection, Normal Range of Motion, Non-Tender, No Pedal Edema, Normal Capillary Refill Neurological: Alert, Oriented Psychiatric: Tearful (while discussing her son) Skin Exam: Warm, Dry, Intact, Normal Color, No Rash Lymphatic: No Adenopathy Course - Vital Signs Last Recorded V/S: Last Vital Signs Temp 99.8 F 03/08/21 12:10 Pulse 90 03/08/21 12:10 Resp 20 03/08/21 12:10 BP 113/69 03/08/21 12:10 Pulse Ox 97 03/08/21 12:10 - Re-Assessments/Exams Free Text/Narrative Re-Assessment/Exam: 03/08/21 12:35 Discussed with the patient for about 20 minutes her sons . Also, her current illness that at this time I believe to be viral. We discussed not using abx at this time due to recent abx, diarrhea, and no fever, lungs clear, and shaking 200 hands. She is agreeable to this. Will discharge, educated when to return and also she is to see her PCP for recheck. Departure - Departure Time of Disposition: 12:39 Disposition: Home, Self-Care 01 Condition: Fair Clinical Impression: Viral upper respiratory illness - Discharge Information *PRESCRIPTION DRUG MONITORING PROGRAM REVIEWED*: Not Applicable *COPY OF PRESCRIPTION DRUG MONITORING REPORT IN PATIENT ABHISHEK: Not Applicable Instructions: Viral Respiratory Infection, [id number] Forms: ED Department Discharge Additional Instructions: Followup with your primary care provider Return to the ER for worsening of condition or any emergent concerns such as fever, shortness of breath, chest congestion Rest Over the counter medications as needed for your symptoms Sepsis Event Note (ED) - Evaluation Sepsis Screening Result: No Definite Risk - Focused Exam Vital Signs: Vital Signs Temp Pulse Resp BP Pulse Ox 03/08/21 12:10 99.8 F 90 20 113/69 97 - Assessment/Plan Plan: PLEASE SEE RN NOTE FOR PFSH
== END 2021-03-08 13:00 | disposition home or self-care (01) ==
LOC: MERGE 11:55 → CC.ED 11:55
DX: J06.9 Acute upper respiratory infection, unspecified (principal)
CPT/HCPCS: 99283

== ENCOUNTER 2021-09-08 09:34 | Observation (INO) | payer MEDICARE, MEDICAID ==
[2021-09-08 10:48] LABS: CHLORIDE,CL 100 mEq/L (98-106); SODIUM,NA 138 mEq/L (136-145)
--- NOTE | 2021-09-08 11:43 | EDM.PDOC ---
ED HPI GENERAL MEDICAL PROBLEM - General Chief Complaint: Upper Extremity Injury/Pain Stated Complaint: LT SHLDR PAIN Time Seen by Provider: 09/08/21 09:55 Source of Information: Reports: Patient History Limitations: Reports: No Limitations - History of Present Illness INITIAL COMMENTS - FREE TEXT/NARRATIVE: Amber is an 86 yo female who presents to the ED via [facility] with complaints of left shoulder pain. She states she had fallen yesterday evening and did call a friend to help her up. States she really didn't have any pain from last night as she fell on her bottom. States she fell again this morning and landed on her buttocks. States she has been dealing with left shoulder pain for quite some time but seems to be a lot worse since the fall this morning. Patient does live alone. States she does have a history of UTI's in the past as well. Denies any head trauma or loss of consciousness from recent falls. No discomfort in lower extremities. Left Shoulder Pain Score (Numeric/FACES): 6 - Related Data Allergies Allergy/AdvReac Type Severity Reaction Status Date / Time cephalexin Allergy Cannot Verified 09/08/21 09:42 Remember levofloxacin [From Levaquin] Allergy Hives Verified 09/08/21 09:42 Penicillins Allergy Cannot Verified 09/08/21 09:42 Remember Sulfa (Sulfonamide Allergy Hives Verified 09/08/21 09:42 Antibiotics) sulfamethoxazole Allergy Rash Verified 09/08/21 09:42 [From Bactrim] trimethoprim [From Bactrim] Allergy Rash Verified 09/08/21 09:42 trovafloxacin [From Trovan] Allergy Cannot Verified 09/08/21 09:42 Remember amoxicillin AdvReac Nausea and Verified 09/08/21 09:42 Vomiting ampicillin AdvReac Nausea and Verified 09/08/21 09:42 Vomiting aspirin AdvReac Diarrhea Verified 09/08/21 09:42 clarithromycin [From Biaxin] AdvReac Stomach Verified 09/08/21 09:42 Ache doxycycline AdvReac Nausea and Verified 09/08/21 09:42 Vomiting ofloxacin [From Floxin] AdvReac Nausea and Verified 09/08/21 09:42 Vomiting Home Meds: Home Meds Ascorbate Calcium [Vitamin C] 500 mg PO DAILY 08/23/15 [History] Cholecalciferol (Vitamin D3) [Vitamin D3] 2,000 units PO DAILY 08/23/15 [History] Fish Oil/Corinne-3 Fatty Acids [Fish Oil] 1 each PO DAILY PRN 08/23/15 [History] Fluticasone Propionate [Flonase] 1 spray NASBOTH BEDTIME 08/23/15 [History] Latanoprost [Xalatan 0.005% Ophth Soln] 1 drop EYEBOTH BEDTIME 08/23/15 [History] Levothyroxine Sodium 88 mcg PO DAILY 08/23/15 [History] Meclizine [Antivert] 25 mg PO TID PRN 08/23/15 [History] Metoprolol Succinate [Toprol XL] 50 mg PO DAILY 08/23/15 [History] Multivitamin [Daily Multiple Vitamin] 1 tab PO DAILY 08/23/15 [History] Omeprazole 20 mg PO DAILY 08/23/15 [History] Triamterene/Hydrochlorothiazid [Triamterene-HCTZ 37.5-25 MG] 37.5 each PO DAILY 08/23/15 [History] Vitamin E 400 unit PO DAILY 08/23/15 [History] diphenhydrAMINE [Benadryl] 25 mg PO Q4H PRN 08/23/15 [History] Calcium Carb/D3/Magnesium/Zinc [Emeterio Mag Zinc-D Tablet] 1 each PO DAILY 12/27/16 [History] Colestipol [Colestipol HCl] 1 gm PO BID 12/27/16 [History] Flaxseed Oil [Flaxseed] 1,000 mg PO DAILY 12/27/16 [History] Furosemide 40 mg PO DAILY 12/27/16 [History] Potassium Chloride [Klor-Con M20] 20 meq PO QID 12/27/16 [History] Ubidecarenone [Co Q-10] 400 mg PO DAILY 12/27/16 [History] Vitamin B Complex 1 cap PO DAILY 12/27/16 [History] Magnesium Oxide 250 mg PO BIDM tablet 01/11/17 [Rx] Clopidogrel [Plavix] 75 mg PO DAILY 09/08/21 [History] Furosemide 40 mg PO DAILY 09/08/21 [History] Losartan [Cozaar] 50 mg PO DAILY 09/08/21 [History] Torsemide 20 mg PO DAILY 09/08/21 [History] Past Medical History HEENT History: Reports: Allergic Rhinitis Other HEENT History: Sinus congestion and cough Cardiovascular History: Reports: Aneurysm, High Cholesterol, Hypertension, Other (See Below) Other Cardiovascular History: holter monitor showed in 2003 Paroxysmal SVT, 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 Respiratory History: Reports: Sleep Apnea Gastrointestinal History: Reports: GERD, Other (See Below) Other Gastrointestinal History: gastric ulcer, abdominal pain suggestive of IBS Musculoskeletal History: Reports: Arthritis, Back Pain, Chronic, Fibromyalgia, Other (See Below) Other Musculoskeletal History: bursitis Neurological History: Reports: Migraines Psychiatric History: Reports: Anxiety, Depression Endocrine/Metabolic History: Reports: Hypothyroidism, Osteoporosis Hematologic History: Reports: Anemia - Infectious Disease History Infectious Disease History: Reports: Rheumatic Fever - Past Surgical History Cardiovascular Surgical History: Reports: None Respiratory Surgical History: Reports: None GI Surgical History: Reports: None Endocrine Surgical History: Reports: None Neurological Surgical History: Reports: None Musculoskeletal Surgical History: Reports: None Social & Family History - Family History Family Medical History: No Pertinent Family History - Tobacco Use Tobacco Use Status *Q: Current Status Unknown - Caffeine Use Caffeine Use: Reports: Coffee Review of Systems - Review of Systems Review Of Systems: See Below Constitutional: Reports: No Symptoms Eyes: Reports: No Symptoms Ears: Reports: No Symptoms Nose: Reports: No Symptoms Mouth/Throat: Reports: No Symptoms Respiratory: Reports: No Symptoms Cardiovascular: Reports: No Symptoms GI/Abdominal: Reports: No Symptoms Genitourinary: Reports: No Symptoms Musculoskeletal: Reports: Shoulder Pain Skin: Reports: No Symptoms Neurological: Reports: No Symptoms, Pre-Existing Deficit (short term memory - chronic). Denies: Headache Psychiatric: Reports: No Symptoms ED EXAM, GENERAL - Physical Exam Exam: See Below Exam Limited By: No Limitations General Appearance: Alert, No Apparent Distress Eye Exam: Bilateral Eye: EOMI, Normal Inspection Ears: Normal External Exam, Hearing Grossly Normal Nose: Normal Inspection, Normal Mucosa, No Blood Throat/Mouth: Normal Inspection, Normal Oropharynx, Normal Voice, No Airway Compromise Head: Atraumatic, Normocephalic Neck: Normal Inspection, Supple, Non-Tender. No: Tender Lateral, Tender Midline Respiratory/Chest: No Respiratory Distress, Lungs Clear, Normal Breath Sounds, No Accessory Muscle Use Cardiovascular: Regular Rate, Rhythm GI/Abdominal: Normal Bowel Sounds, No Organomegaly, No Distention, Pelvis Stable Back Exam: Normal Inspection Extremities: Limited Range of Motion (left shoulder discomfort with abduction. rotator cuff of left shoulder is intact. Tenderness with palpation of left humeral head. ) Neurological: Alert, Oriented Psychiatric: Normal Affect, Normal Mood Skin Exam: Warm, Dry, Intact, Normal Color, No Rash. No: Wound/Incision Course - Vital Signs Last Recorded V/S: Last Vital Signs Temp 97.8 F 09/08/21 09:43 Pulse 73 09/08/21 09:43 Resp 15 09/08/21 09:43 BP 152/91 H 09/08/21 09:43 Pulse Ox 97 09/08/21 09:43 - Orders/Labs/Meds Orders: Active Orders 24 hr Category Date Time Status Shoulder Comp Lt [CR] Stat Exams 09/08/21 10:24 Taken CULTURE URINE [RM] Stat Lab 09/08/21 10:26 Received Labs: Laboratory Tests 09/08/21 09/08/21 09/08/21 Range/Units 10:26 10:34 10:34 WBC 8.2 (4.0-11.0) 10^3/uL RBC 4.20 (4.00-5.50) x10^6/uL Hgb 12.4 (12.0-16.0) g/dL Hct 37.6 (37.0-47.0) % MCV 89.5 (83.0-97.0) fL MCH 29.5 (27.0-32.0) pg MCHC 33.0 (32.0-36.0) g/dL RDW Coeff of Tony 13.8 (11.0-15.0) % Plt Count 393 (150-400) 10^3/uL Immature Gran % (Auto) 0.0 (0.0-4.9) % Neut % (Auto) 62.4 (41-71) % Lymph % (Auto) 23.1 L (24-44) % [place] % (Auto) 7.2 (0-10) % Eos % (Auto) 6.8 H (0-6) % Baso % (Auto) 0.5 (0-1) % Neut # (Auto) 5.13 (1.80-8.00) x10^3/uL Lymph # (Auto) 1.90 (0.60-5.00) 10^3/uL [place] # (Auto) 0.59 (0.00-1.50) 10^3/uL Eos # (Auto) 0.56 (0.00-1.50) 10^3/uL Baso # (Auto) 0.04 (0.00-0.50) 10^3/uL Immature Gran # (Auto) 0.00 (0.00-0.49) 10^3/uL Sodium 138 (136-145) mEq/L Potassium 3.7 (3.5-5.0) mEq/L Chloride 100 (98-106) mEq/L Carbon Dioxide 33 H (21-32) mmol/L BUN 20 H (7-18) mg/dL Creatinine 0.9 (0.6-1.0) mg/dL Est Cr Clr Drug Dosing 34.67 mL/min Estimated GFR (MDRD) 59 L (>=60) mL/min Glucose 112 H (75-99) mg/dL Calcium 9.6 (8.4-10.1) mg/dL Total Bilirubin 0.3 (0.0-1.0) mg/dL AST 16 (15-37) U/L ALT 21 (12-78) U/L Alkaline Phosphatase 113 (46-116) U/L C-Reactive Protein < 0.2 L (0.2-0.8) mg/dL Total Protein 7.0 (6.4-8.2) g/dL Albumin 3.5 (3.4-5.0) g/dL Urine Color Yellow (YELLOW) Urine Appearance Slightly cloudy (CLEAR) Urine pH 7.0 (4.5-8.0) Ur Specific [place] 1.015 (1.003-1.020) Urine Protein Negative (NEGATIVE) mg/dL Urine Glucose (UA) Negative (NEGATIVE) mg/dL Urine Ketones Negative (NEGATIVE) mg/dL Urine Occult Blood Trace-intact H (NEGATIVE) Urine Nitrite Negative (NEGATIVE) Urine Bilirubin Negative (NEGATIVE) Urine Urobilinogen 0.2 (0.2-1.0) EU/dL Ur Leukocyte Esterase Small H (NEGATIVE) Urine RBC 5-10 H (0-5) /HPF Urine WBC 20-30 H (0-5) /HPF Ur Squamous Epith Cells Moderate H (NOT SEEN) /HPF Urine Bacteria Few H (NOT SEEN) /HPF Urinalysis Comment Departure - Departure Time of Disposition: 11:44 Disposition: Refer to Observation Clinical Impression: UTI, Urinary tract infectious disease, Unsteady gait Left shoulder pain Qualifiers: Chronicity: acute Qualified Code(s): M25.512 - Pain in left shoulder UTI (urinary tract infection) Qualifiers: Urinary tract infection type: acute cystitis Hematuria presence: without hematuria Qualified Code(s): N30.00 - Acute cystitis without hematuria - Discharge Information Forms: ED Department Discharge Sepsis Event Note (ED) - Evaluation Sepsis Screening Result: No Definite Risk - Focused Exam Vital Signs: Vital Signs Temp Pulse Resp BP Pulse Ox 09/08/21 09:43 97.8 F 73 15 152/91 H 97 - Problem List & Annotations (1) Left shoulder pain SNOMED Code(s): 14314191, 42548528 Code(s): M25.512 - PAIN IN LEFT SHOULDER Status: Acute Current Visit: Yes Qualifiers: Chronicity: acute Qualified Code(s): M25.512 - Pain in left shoulder (2) UTI (urinary tract infection) SNOMED Code(s): 56254222 Code(s): N39.0 - URINARY TRACT INFECTION, SITE NOT SPECIFIED Status: Acute Current Visit: Yes Qualifiers: Urinary tract infection type: acute cystitis Hematuria presence: without hematuria Qualified Code(s): N30.00 - Acute cystitis without hematuria (3) Unsteady gait SNOMED Code(s): 42698404 Code(s): R26.81 - UNSTEADINESS ON FEET Status: Acute Current Visit: Yes - My Orders Last 24 Hours: My Active Orders 09/08/21 10:24 Shoulder Comp Lt [CR] Stat 09/08/21 10:26 CULTURE URINE [RM] Stat - Assessment/Plan Admission H&P: Please use this note as an admission H&P Last 24 Hours: My Active Orders 09/08/21 10:24 Shoulder Comp Lt [CR] Stat 09/08/21 10:26 CULTURE URINE [RM] Stat Plan: Patient did ambulate in the ED with a cane, which she continued to have an unsteady gait. With current symptoms I did consult with Dr. Cao in regards to Amber's condition. Will admit to Dr. Cao's services under observation. Patient has a long history of UTI's and urinalysis was contaminated. Otherwise all other laboratory work and left shoulder images were unremarkable. Will get repeat urinalysis with a clean catch. Physical therapy to work with patient for unsteady gait and left shoulder pain.
[2021-09-08] MEDS ORDERED: Acetaminophen 325 MG Tab PO PRN (12:39)
[2021-09-08] MEDS ORDERED: Docusate Sodium 100 MG Cap PO PRN (12:39)
[2021-09-08] MEDS ORDERED: Sodium Chloride 0.9% 10 ML Syringe FLUSH PRN (12:39)
[2021-09-08] MEDS: Celecoxib 100 MG Cap PO SCH (18:35)
[2021-09-09] MEDS: LEVOTHYROXINE 88 MCG PO SCH (06:22)
[2021-09-09] MEDS: LOSARTAN 50 MG PO SCH (07:27)
[2021-09-09] MEDS: Celecoxib 100 MG Cap PO SCH ×2 (07:27→17:07)
[2021-09-09] MEDS: TRIAMTERENE PO SCH (07:27)
[2021-09-09] MEDS: HYDROCHLOROTHIAZIDE PO SCH (07:27)
[2021-09-09] MEDS: Furosemide 40 MG Tab **PTOM PO SCH (07:27)
[2021-09-09] MEDS ORDERED: Loratadine 10 MG Tab PO PRN (08:18)
[2021-09-09] MEDS ORDERED: Potassium Chloride Riders 40 MEQ in Premix Bag 1 BAG IV ONE (10:16)
[2021-09-09] MEDS ORDERED: NS + KCl 20mEq/L 1,000 ML IV SCH (10:30)
[2021-09-09] MEDS ORDERED: Sodium Chloride 0.9% 1,000 ML IV SCH (11:00)
[2021-09-09] MEDS ORDERED: COVID 19 MRNA VACCINE IM ONE (12:30)
[2021-09-09] MEDS: Potassium Chloride 10 MEQ Tab.ER **PTOM PO SCH (17:07)
[2021-09-09] MEDS: Enoxaparin 30 MG/0.3 ML Syringe SUBCUT SCH (19:26)
--- NOTE | 2021-09-09 20:05 | PCM.CONSN ---
- General Info Date of Service: 09/09/21 Admission Dx/Problem (Free Text): Shoulder Pain Weakness Subjective Update: Patient up in chair, resting comfortably. Continues to have shoulder pain. Is ambulating to the bathroom with walker and standby assist. Appetite is good. Vital signs are stable. Functional Status: Reports: Tolerating Diet, Ambulating. Denies: Pain Controlled - Review of Systems General: Reports: Weakness, Fatigue, Malaise. Denies: Fever HEENT: Denies: Ear Pain, Sinus Congestion, Sore Throat Pulmonary: Denies: Shortness of Breath, Cough Cardiovascular: Denies: Chest Pain, Edema, Lightheadedness Gastrointestinal: Denies: Abdominal Pain, Nausea, Vomiting Genitourinary: Reports: No Symptoms Musculoskeletal: Reports: Shoulder Pain Skin: Reports: No Symptoms Neurological: Reports: Weakness - Patient Data Vitals - Most Recent: Last Vital Signs Temp 98.6 F 09/09/21 12:00 Pulse 70 09/09/21 16:00 Resp 17 09/09/21 12:00 BP 118/80 09/09/21 16:00 Pulse Ox 97 09/09/21 16:00 Weight - Most Recent: 143 lb 14.4 oz I&O - Last 24 Hours: Intake & Output 09/09/21 09/09/21 09/09/21 06:59 14:59 22:59 Intake Total 373 Balance 373 Lab Results Last 24 Hours: Laboratory Results - last 24 hr 09/09/21 09/09/21 09/09/21 Range/Units 08:49 08:49 16:00 WBC 7.6 (4.0-11.0) 10^3/uL RBC 4.45 (4.00-5.50) x10^6/uL Hgb 13.1 (12.0-16.0) g/dL Hct 39.4 (37.0-47.0) % MCV 88.5 (83.0-97.0) fL MCH 29.4 (27.0-32.0) pg MCHC 33.2 (32.0-36.0) g/dL RDW Coeff of Tony 13.9 (11.0-15.0) % Plt Count 409 H (150-400) 10^3/uL Immature Gran % (Auto) 0.1 (0.0-4.9) % Neut % (Auto) 51.3 (41-71) % Lymph % (Auto) 33.7 (24-44) % [place] % (Auto) 6.5 (0-10) % Eos % (Auto) 7.9 H (0-6) % Baso % (Auto) 0.5 (0-1) % Neut # (Auto) 3.89 (1.80-8.00) x10^3/uL Lymph # (Auto) 2.56 (0.60-5.00) 10^3/uL [place] # (Auto) 0.49 (0.00-1.50) 10^3/uL Eos # (Auto) 0.60 (0.00-1.50) 10^3/uL Baso # (Auto) 0.04 (0.00-0.50) 10^3/uL Immature Gran # (Auto) 0.01 (0.00-0.49) 10^3/uL Sodium 135 L (136-145) mEq/L Potassium 2.8 L* D 4.5 D (3.5-5.0) mEq/L Chloride 95 L (98-106) mEq/L Carbon Dioxide 30 (21-32) mmol/L BUN 24 H (7-18) mg/dL Creatinine 1.2 H (0.6-1.0) mg/dL Est Cr Clr Drug Dosing 26.00 mL/min Estimated GFR (MDRD) 43 L (>=60) mL/min Glucose 149 H D (75-99) mg/dL Calcium 9.5 (8.4-10.1) mg/dL Magnesium 2.2 (1.8-2.4) mg/dL C-Reactive Protein 0.3 (0.2-0.8) mg/dL Med Orders - Current: Current Medications Acetaminophen (Acetaminophen 325 Mg Tab) 650 mg PO Q4H PRN PRN Reason: Pain (Mild 1-3)/fever Celecoxib (Celecoxib 100 Mg Cap) 100 mg PO BIDMEALS [facility] Last Admin: 09/09/21 17:07 Dose: 100 mg Documented by: Clopidogrel Bisulfate (Clopidogrel 75 Mg Tab Ptom) 75 mg PO DAILY [facility] Last Admin: 09/09/21 07:28 Dose: 75 mg Documented by: Docusate Sodium (Docusate Sodium 100 Mg Cap) 100 mg PO BID PRN PRN Reason: Constipation Enoxaparin Sodium (Enoxaparin 30 Mg/0.3 Ml Syringe) 30 mg SUBCUT Q24H [facility] Furosemide (Furosemide 40 Mg Tab Ptom) 40 mg PO DAILY [facility] Last Admin: 09/09/21 07:27 Dose: 40 mg Documented by: Levothyroxine Sodium (Levothyroxine 88 Mcg Tab Ptom) 88 mcg PO ACBREAKFAST [facility] Last Admin: 09/09/21 06:22 Dose: 88 mcg Documented by: Loratadine (Loratadine 10 Mg Tab) 10 mg PO DAILY PRN PRN Reason: Allergies Losartan [Cozaar] 50 (Mg Tablet Ptom) 0 mg PO DAILY [facility] Last Admin: 09/09/21 07:27 Dose: 50 mg Documented by: Potassium Chloride (Potassium Chloride 10 Meq Tab.Er Ptom) 20 meq PO TIDMEALS [facility] Last Admin: 09/09/21 17:07 Dose: 20 meq Documented by: Sodium Chloride (Sodium Chloride 0.9% 10 Ml Syringe) 10 ml FLUSH ASDIRECTED PRN PRN Reason: Keep Vein Open Triamterene/Hydrochlorothiazide (Hydrochlorothiazide/Triamterene 25-37.5 Mg Cap Ptom) 1 each PO DAILY [facility] Last Admin: 09/09/21 07:27 Dose: 1 each Documented by: Discontinued Medications COVID-19 Vaccine mRNA LNP-S (MOD) (PF) (Covid-19 Vacc,Mrna(Moderna)/Pf 100 Mcg/0.5 Ml - 5 Ml Mdv) 100 mcg IM .ONCE ONE Stop: 09/09/21 12:31 Last Admin: 09/09/21 13:40 Dose: 100 mcg Documented by: Potassium Chloride 40 meq/ (Premix) 100 mls @ 25 mls/hr IV ONETIME ONE Stop: 09/09/21 14:15 Last Admin: 09/09/21 10:58 Dose: 25 mls/hr Documented by: Potassium Chloride/Sodium Chloride (Normal Saline With 20 Meq Kcl) 1,000 mls @ 50 mls/hr IV ASDIRECTED [facility] Last Admin: 09/09/21 10:58 Dose: 50 mls/hr Documented by: Sodium Chloride (Normal Saline) 1,000 mls @ 250 mls/hr IV ASDIRECTED [facility] Last Infusion: 09/09/21 13:59 Dose: 250 mls/hr Documented by: - Exam General: Alert, Oriented, Cooperative HEENT: Mucous Membr. Moist/[place] Neck: Supple Lungs: Clear to Auscultation, Normal Respiratory Effort Cardiovascular: Regular Rate, Regular Rhythm GI/Abdominal Exam: Normal Bowel Sounds, Soft, Non-Tender Extremities: Normal Inspection, Limited Range of Motion (right shoulder) Skin: Warm, Dry Neurological: No New Focal Deficit Sepsis Event Note - Evaluation Sepsis Screening Result: No Definite Risk - Focused Exam Vital Signs: Vital Signs Temp Pulse Resp BP Pulse Ox 09/09/21 16:00 70 118/80 97 09/09/21 12:00 98.6 F 78 17 120/73 97 Consult PN Assessment/Plan Procedures: Procedures ASSAY OF BLOOD/URIC ACID (06/08/16) ASSAY OF CK (CPK) (06/09/17) ASSAY OF FOLIC ACID SERUM (06/09/17) ASSAY OF FREE THYROXINE (06/09/17) ASSAY OF MAGNESIUM (10/22/19) ASSAY OF NATRIURETIC PEPTIDE (02/16/17) ASSAY OF SERUM POTASSIUM (04/18/14) ASSAY OF TROPONIN QUANT (03/19/19) ASSAY THYROID STIM HORMONE (03/19/19) C-REACTIVE PROTEIN (03/19/19) CHEST X-RAY 2VW FRONTAL&LATL (11/23/16) CLOSTRIDIUM AG IA (08/23/15) COMP SCREEN MAMMOGRAM ADD-ON (06/18/16) COMPLETE CBC W/AUTO DIFF WBC (03/13/20) COMPREHEN METABOLIC PANEL (03/19/19) CT ANGIOGRAPHY CHEST (06/16/17) CT THORAX DX C+ (05/17/14) CULTURE AEROBIC IDENTIFY (09/14/13) CULTURE OTHR SPECIMN AEROBIC (09/05/20) DXA BONE DENSITY AXIAL (06/16/17) ELECTROCARDIOGRAM TRACING (11/23/16) EMERGENCY DEPT VISIT (03/08/21) EMERGENCY DEPT VISIT (08/23/15) FECES CULTURE AEROBIC BACT (08/23/15) FIBRIN DEGRADATION QUANT (02/16/17) GIARDIA AG IA (02/18/14) HPYLORI STOOL AG IA (02/18/14) LEUKOCYTE ASSESSMENT FECAL (08/23/15) LIPID PANEL (06/09/17) METABOLIC PANEL TOTAL CA (09/05/20) MICROBE SUSCEPTIBLE MIRIAM (01/23/21) OCCULT BLD FECES 1-3 TESTS (02/18/14) POLYSOM 6/>YRS CPAP 4/> PARM (12/16/14) RBC SED RATE NONAUTOMATED (06/09/17) RHEUMATOID FACTOR TEST QUAL (04/17/14) ROUTINE VENIPUNCTURE (09/05/20) SMEAR WET [place] SALINE/INK (09/05/20) STOOL CULTR AEROBIC BACT EA (08/23/15) THER/PROPH/DIAG INJ SC/IM (07/19/20) THER/PROPH/DIAG IV INF ADDON (04/17/14) THER/PROPH/DIAG IV INF INIT (08/23/15) TTE W/DOPPLER COMPLETE (09/13/18) TX/PRO/DX INJ NEW DRUG ADDON (04/17/14) URINALYSIS AUTO W/O SCOPE (05/19/20) URINALYSIS AUTO W/SCOPE (01/23/21) URINALYSIS NONAUTO W/O SCOPE (07/18/19) URINE BACTERIA CULTURE (01/23/21) URINE CULTURE/COLONY COUNT (01/23/21) US EXAM ABDO BACK WALL COMP (04/14/16) US EXAM ABDO BACK WALL NEELY (06/16/17) VITAMIN B-12 (06/09/17) VITAMIN D 25 HYDROXY (06/09/17) X-RAY EXAM OF ABDOMEN (08/23/15) X-RAY EXAM OF HAND (06/04/14) X-RAY EXAM OF HIP (04/03/15) X-RAY EXAM OF KNEES (08/17/16) X-RAY EXAM OF PELVIS (08/17/16) X-RAY EXAM OF WRIST (06/04/14) My Orders Last 24 Hours: My Active Orders 09/09/21 20:00 Enoxaparin [Lovenox] 30 mg SUBCUT Q24H
--- NOTE | 2021-09-09 20:15 | PCM.PN ---
- General Info Date of Service: 09/09/21 Admission Dx/Problem (Free Text): Unsteady Gait Weakness Shoulder Pain Subjective Update: Amber was admitted due to weakness, frequent falls. Has been having shoulder pain now for months. UA was repeated and was negative. Was admitted for PT evaluation. Today is feeling good. Does still have shoulder pain but has been ongoing for months. She is ambulating with her walker, feels more stable on her feet. Vital signs are stable. Appetite is good Functional Status: Reports: Tolerating Diet, Ambulating - Review of Systems General: Reports: Weakness, Fatigue HEENT: Denies: Ear Pain, Sinus Congestion, Sore Throat Pulmonary: Denies: Shortness of Breath Cardiovascular: Denies: Chest Pain, Lightheadedness Gastrointestinal: Denies: Abdominal Pain, Nausea, Vomiting Genitourinary: Reports: Frequency Musculoskeletal: Reports: Shoulder Pain, Back Pain Skin: Reports: No Symptoms Neurological: Reports: Weakness - Patient Data Vitals - Most Recent: Last Vital Signs Temp 98.6 F 09/09/21 12:00 Pulse 70 09/09/21 16:00 Resp 17 09/09/21 12:00 BP 118/80 09/09/21 16:00 Pulse Ox 97 09/09/21 16:00 Weight - Most Recent: 143 lb 14.4 oz I&O - Last 24 Hours: Intake & Output 09/09/21 09/09/21 09/09/21 06:59 14:59 22:59 Intake Total 373 Balance 373 Lab Results Last 24 Hours: Laboratory Results - last 24 hr 09/09/21 09/09/21 09/09/21 Range/Units 08:49 08:49 16:00 WBC 7.6 (4.0-11.0) 10^3/uL RBC 4.45 (4.00-5.50) x10^6/uL Hgb 13.1 (12.0-16.0) g/dL Hct 39.4 (37.0-47.0) % MCV 88.5 (83.0-97.0) fL MCH 29.4 (27.0-32.0) pg MCHC 33.2 (32.0-36.0) g/dL RDW Coeff of Tony 13.9 (11.0-15.0) % Plt Count 409 H (150-400) 10^3/uL Immature Gran % (Auto) 0.1 (0.0-4.9) % Neut % (Auto) 51.3 (41-71) % Lymph % (Auto) 33.7 (24-44) % Branch % (Auto) 6.5 (0-10) % Eos % (Auto) 7.9 H (0-6) % Baso % (Auto) 0.5 (0-1) % Neut # (Auto) 3.89 (1.80-8.00) x10^3/uL Lymph # (Auto) 2.56 (0.60-5.00) 10^3/uL Branch # (Auto) 0.49 (0.00-1.50) 10^3/uL Eos # (Auto) 0.60 (0.00-1.50) 10^3/uL Baso # (Auto) 0.04 (0.00-0.50) 10^3/uL Immature Gran # (Auto) 0.01 (0.00-0.49) 10^3/uL Sodium 135 L (136-145) mEq/L Potassium 2.8 L* D 4.5 D (3.5-5.0) mEq/L Chloride 95 L (98-106) mEq/L Carbon Dioxide 30 (21-32) mmol/L BUN 24 H (7-18) mg/dL Creatinine 1.2 H (0.6-1.0) mg/dL Est Cr Clr Drug Dosing 26.00 mL/min Estimated GFR (MDRD) 43 L (>=60) mL/min Glucose 149 H D (75-99) mg/dL Calcium 9.5 (8.4-10.1) mg/dL Magnesium 2.2 (1.8-2.4) mg/dL C-Reactive Protein 0.3 (0.2-0.8) mg/dL Med Orders - Current: Current Medications Acetaminophen (Acetaminophen 325 Mg Tab) 650 mg PO Q4H PRN PRN Reason: Pain (Mild 1-3)/fever Celecoxib (Celecoxib 100 Mg Cap) 100 mg PO BIDMEALS [facility] Last Admin: 09/09/21 17:07 Dose: 100 mg Documented by: Clopidogrel Bisulfate (Clopidogrel 75 Mg Tab Ptom) 75 mg PO DAILY [facility] Last Admin: 09/09/21 07:28 Dose: 75 mg Documented by: Docusate Sodium (Docusate Sodium 100 Mg Cap) 100 mg PO BID PRN PRN Reason: Constipation Enoxaparin Sodium (Enoxaparin 30 Mg/0.3 Ml Syringe) 30 mg SUBCUT Q24H [facility] Furosemide (Furosemide 40 Mg Tab Ptom) 40 mg PO DAILY [facility] Last Admin: 09/09/21 07:27 Dose: 40 mg Documented by: Levothyroxine Sodium (Levothyroxine 88 Mcg Tab Ptom) 88 mcg PO ACBREAKFAST [facility] Last Admin: 09/09/21 06:22 Dose: 88 mcg Documented by: Loratadine (Loratadine 10 Mg Tab) 10 mg PO DAILY PRN PRN Reason: Allergies Losartan [Cozaar] 50 (Mg Tablet Ptom) 0 mg PO DAILY [facility] Last Admin: 09/09/21 07:27 Dose: 50 mg Documented by: Potassium Chloride (Potassium Chloride 10 Meq Tab.Er Ptom) 20 meq PO TIDMEALS [facility] Last Admin: 09/09/21 17:07 Dose: 20 meq Documented by: Sodium Chloride (Sodium Chloride 0.9% 10 Ml Syringe) 10 ml FLUSH ASDIRECTED PRN PRN Reason: Keep Vein Open Triamterene/Hydrochlorothiazide (Hydrochlorothiazide/Triamterene 25-37.5 Mg Cap Ptom) 1 each PO DAILY [facility] Last Admin: 09/09/21 07:27 Dose: 1 each Documented by: Discontinued Medications COVID-19 Vaccine mRNA LNP-S (MOD) (PF) (Covid-19 Vacc,Mrna(Moderna)/Pf 100 Mcg/0.5 Ml - 5 Ml Mdv) 100 mcg IM .ONCE ONE Stop: 09/09/21 12:31 Last Admin: 09/09/21 13:40 Dose: 100 mcg Documented by: Potassium Chloride 40 meq/ (Premix) 100 mls @ 25 mls/hr IV ONETIME ONE Stop: 09/09/21 14:15 Last Admin: 09/09/21 10:58 Dose: 25 mls/hr Documented by: Potassium Chloride/Sodium Chloride (Normal Saline With 20 Meq Kcl) 1,000 mls @ 50 mls/hr IV ASDIRECTED [facility] Last Admin: 09/09/21 10:58 Dose: 50 mls/hr Documented by: Sodium Chloride (Normal Saline) 1,000 mls @ 250 mls/hr IV ASDIRECTED [facility] Last Infusion: 09/09/21 13:59 Dose: 250 mls/hr Documented by: - Exam General: Alert, Oriented HEENT: Mucous Membr. Moist/[place] Neck: Supple Lungs: Clear to Auscultation, Normal Respiratory Effort Cardiovascular: Regular Rate, Regular Rhythm GI/Abdominal Exam: Normal Bowel Sounds, Soft, Non-Tender Extremities: Limited Range of Motion (left shoulder) Skin: Warm, Dry Neurological: No New Focal Deficit - Patient Data Lab Results Last 24 hrs: Laboratory Results - last 24 hr 09/09/21 09/09/21 09/09/21 Range/Units 08:49 08:49 16:00 WBC 7.6 (4.0-11.0) 10^3/uL RBC 4.45 (4.00-5.50) x10^6/uL Hgb 13.1 (12.0-16.0) g/dL Hct 39.4 (37.0-47.0) % MCV 88.5 (83.0-97.0) fL MCH 29.4 (27.0-32.0) pg MCHC 33.2 (32.0-36.0) g/dL RDW Coeff of Tony 13.9 (11.0-15.0) % Plt Count 409 H (150-400) 10^3/uL Immature Gran % (Auto) 0.1 (0.0-4.9) % Neut % (Auto) 51.3 (41-71) % Lymph % (Auto) 33.7 (24-44) % Branch % (Auto) 6.5 (0-10) % Eos % (Auto) 7.9 H (0-6) % Baso % (Auto) 0.5 (0-1) % Neut # (Auto) 3.89 (1.80-8.00) x10^3/uL Lymph # (Auto) 2.56 (0.60-5.00) 10^3/uL Branch # (Auto) 0.49 (0.00-1.50) 10^3/uL Eos # (Auto) 0.60 (0.00-1.50) 10^3/uL Baso # (Auto) 0.04 (0.00-0.50) 10^3/uL Immature Gran # (Auto) 0.01 (0.00-0.49) 10^3/uL Sodium 135 L (136-145) mEq/L Potassium 2.8 L* D 4.5 D (3.5-5.0) mEq/L Chloride 95 L (98-106) mEq/L Carbon Dioxide 30 (21-32) mmol/L BUN 24 H (7-18) mg/dL Creatinine 1.2 H (0.6-1.0) mg/dL Est Cr Clr Drug Dosing 26.00 mL/min Estimated GFR (MDRD) 43 L (>=60) mL/min Glucose 149 H D (75-99) mg/dL Calcium 9.5 (8.4-10.1) mg/dL Magnesium 2.2 (1.8-2.4) mg/dL C-Reactive Protein 0.3 (0.2-0.8) mg/dL Result Diagrams: 09/09/21 08:49 09/09/21 16:00 Sepsis Event Note - Evaluation Sepsis Screening Result: No Definite Risk - Focused Exam Vital Signs: Vital Signs Temp Pulse Resp BP Pulse Ox 09/09/21 16:00 70 118/80 97 09/09/21 12:00 98.6 F 78 17 120/73 97 - Problem List & Annotations (1) Left shoulder pain SNOMED Code(s): 36146883, 73613932 Code(s): M25.512 - PAIN IN LEFT SHOULDER Status: Acute Priority: High Current Visit: Yes Qualifiers: Chronicity: acute Qualified Code(s): M25.512 - Pain in left shoulder (2) Unsteady gait SNOMED Code(s): 75324149 Code(s): R26.81 - UNSTEADINESS ON FEET Status: Acute Priority: High Current Visit: Yes - Problem List Review Problem List Initiated/Reviewed/Updated: Yes - My Orders Last 24 Hours: My Active Orders 09/09/21 20:00 Enoxaparin [Lovenox] 30 mg SUBCUT Q24H - Assessment Assessment:: Unsteady Gait Weakness Left shoulder pain - Plan Plan:: Patient is feeling better. Ambulating with walker. Labs are repeated today, potassium is low at 2.8. Patient did not have her potassium from home and has refused to take meds from the hospital as she would have to pay. Did start IV potassium bump, will recheck potassium at 1600 and possibly discharge at that time. Obtain oral meds from home if possible.
[2021-09-09] MEDS ORDERED: Temazepam 15 MG Cap PO PRN (20:23)
[2021-09-10] MEDS: Enoxaparin 30 MG/0.3 ML Syringe SUBCUT SCH (06:01)
[2021-09-10] MEDS: LEVOTHYROXINE 88 MCG PO SCH (06:02)
[2021-09-10 07:51] VITALS: BP 118/65; PULSE 69
[2021-09-10] MEDS: TRIAMTERENE PO SCH (08:01)
[2021-09-10] MEDS: Furosemide 40 MG Tab **PTOM PO SCH (08:01)
[2021-09-10] MEDS: Potassium Chloride 10 MEQ Tab.ER **PTOM PO SCH ×2 (08:01→12:05)
[2021-09-10] MEDS: Celecoxib 100 MG Cap PO SCH (08:01)
[2021-09-10] MEDS: HYDROCHLOROTHIAZIDE PO SCH (08:01)
[2021-09-10] MEDS: LOSARTAN 50 MG PO SCH (08:02)
--- NOTE | 2021-09-10 11:19 | PN ---
DATE: 09/10/2021 S: Amber is doing much better. Shoulder pain is improved. She has been up and ambulating without a lot of difficulty. She was admitted I believe Tuesday by Luis Pritchard suspecting a UTI, which was not there because she was weak and having shoulder pain. She was admitted for observation for PT to evaluate. The patient has not had any issues since here. Vital signs have been fine. She has been afebrile. O: On physical exam today, she is pleasant, alert, and cooperative. NECK: Supple. LUNGS: Clear. CARDIAC: Tones regular. ABDOMEN: Soft. EXTREMITIES: She has no peripheral edema. ASSESSMENT: 1. WEAKNESS, IMPROVED. 2. LEFT SHOULDER PAIN, CHRONIC AND RELATED TO IMPINGEMENT. 3. RECURRENT FALLS. P: Reviewed her chart. She did not have a CT scan of her head at the time of admission for frequent falls and unsteadiness. We will get a CT scan today. If negative, she will likely be ready for discharge later this afternoon. MARCIAL/RANI /[id number]
--- NOTE | 2021-09-10 13:43 | DISCH ---
ADMISSION DIAGNOSES: 1. Left shoulder pain. 2. Frequent falls. 3. Weakness. 4. Urinary tract infection. DISCHARGE DIAGNOSIS: 1. WEAKNESS, IMPROVED. 2. SHOULDER PAIN, CHRONIC AND RELATED TO IMPINGEMENT. 3. RECURRENT FALLS. HISTORY: The patient was admitted by Luis Pritchard out of the emergency room for UTI. It turned out she did not have one, but had been having weakness, had been having recurrent falls and some pain as she has a chronic impingement of her shoulder and has exacerbated that. She was admitted for physical therapy and treatment of a UTI. HOSPITAL COURSE: The patient did well while here. She has steadily gotten better. PT has been ambulating her. She has done fine. A repeat urine was done which showed no signs of infection. Her vitals have been stable. I saw her on the day of discharge, discussed her frequent fall. She has had 3 of them. Because of this, I did a CT of her head which shows no signs of any intercerebral bleed or abnormality. At this time, she appears clinically well. She will go home with instructions for followup with her primary provider in 2 weeks' time. COMPLICATIONS: During her stay none. CONSULTATIONS: PT. DISPOSITION: Discharged home. MARCIAL/RANI /[id number]
== END 2021-09-10 13:25 | disposition home or self-care (01) ==
LOC: CC.ED 09:34 → UNDOADMOB 11:58 → CC.MS 11:58
PROVIDERS: ADMIT Physician Assistant Medical; ATTEND Family Medicine
DX: M25.812 Other specified joint disorders, left shoulder (principal); G89.29 Other chronic pain; R53.1 Weakness; K21.9 Gastro-esophageal reflux disease without esophagitis; E78.00 Pure hypercholesterolemia, unspecified; I10 Essential (primary) hypertension; E03.9 Hypothyroidism, unspecified; M81.0 Age-related osteoporosis without current pathological fracture; N39.0 Urinary tract infection, site not specified; R26.81 Unsteadiness on feet; Z88.8 Allergy status to other drugs, medicaments and biological substances; Z88.0 Allergy status to penicillin; Z88.2 Allergy status to sulfonamides; Z88.1 Allergy status to other antibiotic agents; Z79.899 Other long term (current) drug therapy
CPT/HCPCS: 0012A; 36415; 70450; 73030-LT; 80048; 80053; 81001; 83735; 84132; 85025; 86140; 90471; 91301; 97161-GP; 99285-25; A9270-GY; G0378; J1650; J3480; J7030

== ENCOUNTER 2022-02-22 10:40 | Emergency (ER) | payer MEDICARE, MEDICAID ==
[2022-02-22 10:46] VITALS: BP 138/65; PULSE 74
[2022-02-22 11:30] LABS: CHLORIDE,CL 101 mEq/L (98-106); SODIUM,NA 137 mEq/L (136-145)
== END 2022-02-22 11:54 | disposition home or self-care (01) ==
LOC: CC.ED 10:40
DX: N30.00 Acute cystitis without hematuria (principal); E03.9 Hypothyroidism, unspecified; E78.00 Pure hypercholesterolemia, unspecified; I10 Essential (primary) hypertension; K21.9 Gastro-esophageal reflux disease without esophagitis; Z88.1 Allergy status to other antibiotic agents; Z88.0 Allergy status to penicillin; Z88.2 Allergy status to sulfonamides; Z88.8 Allergy status to other drugs, medicaments and biological substances; Z79.899 Other long term (current) drug therapy; Z79.02 Long term (current) use of antithrombotics/antiplatelets
CPT/HCPCS: 36415; 80053; 81001; 85025; 99283

== ENCOUNTER 2022-03-16 07:23 | Emergency (ER) | payer MEDICARE, MEDICAID ==
[2022-03-16 07:35] VITALS: BP 128/73; PULSE 65
== END 2022-03-16 08:37 | disposition home or self-care (01) ==
LOC: CC.ED 07:23
DX: G89.29 Other chronic pain (principal); M25.512 Pain in left shoulder; B37.49 Other urogenital candidiasis; I10 Essential (primary) hypertension; K21.9 Gastro-esophageal reflux disease without esophagitis; E03.9 Hypothyroidism, unspecified; Z88.1 Allergy status to other antibiotic agents; Z88.0 Allergy status to penicillin; Z88.2 Allergy status to sulfonamides; Z79.899 Other long term (current) drug therapy; Z79.02 Long term (current) use of antithrombotics/antiplatelets
CPT/HCPCS: 81003; 99283; 99284

== ENCOUNTER 2022-05-13 11:26 | Inpatient (IN) | payer MEDICARE, MEDICAID ==
[2022-05-13 12:22] LABS: CHLORIDE,CL 98 mEq/L (98-106); SODIUM,NA 136 mEq/L (136-145)
[2022-05-13 12:24] LABS: ESTIMATED GFR 71 mL/min (>=60)
[2022-05-13] MEDS ORDERED: Acetaminophen 325 MG Tab PO PRN (14:22)
[2022-05-13] MEDS ORDERED: Iopamidol 755 Mg/ML 100 ML Bottle IVPUSH ONE (14:27)
[2022-05-13] MEDS ORDERED: Sodium Chloride 0.9% 10 ML Syringe FLUSH PRN (14:40)
[2022-05-13] MEDS ORDERED: Oxyquinoline/Emollient 0.3% Oint 1 OZ Canister TOP PRN (14:53)
[2022-05-13] MEDS: cefTRIAXone 1 GM Vial IVPUSH SCH (15:32)
[2022-05-13] MEDS: POTASSIUM CHLORIDE 20 MEQ PO SCH (17:32)
[2022-05-14] MEDS: Pantoprazole 40 MG Tab.CR PO SCH (06:10)
[2022-05-14] MEDS: LEVOTHYROXINE 88 MCG PO SCH (06:10)
[2022-05-14] MEDS: HYDROCHLOROTHIAZIDE PO SCH (07:50)
[2022-05-14] MEDS: TRIAMTERENE PO SCH (07:50)
[2022-05-14] MEDS: ESTRADIOL 0.5 MG PO SCH (07:51)
[2022-05-14] MEDS: Clopidogrel 75 MG Tab *PTOM PO SCH (07:52)
[2022-05-14] MEDS: POTASSIUM CHLORIDE 20 MEQ PO SCH ×3 (07:52→17:25)
[2022-05-14] MEDS: Furosemide 40 MG Tab **PTOM PO SCH (07:53)
[2022-05-14] MEDS ORDERED: ESTRADIOL 1 MG PO SCH (08:00)
[2022-05-14] MEDS ORDERED: LOSARTAN 50 MG PO SCH (08:00)
[2022-05-14] MEDS ORDERED: Non-Formulary Medication 1 Each (Atorvastatin Calcium [Atorvastatin Calcium] 40 MG Tablet) PO SCH (08:00)
[2022-05-14] MEDS ORDERED: Atropine/Diphenoxylate 0.025-2.5 MG Tab PO ONE (09:41)
[2022-05-14] MEDS ORDERED: Atropine/Diphenoxylate 0.025-2.5 MG Tab PO PRN (09:42)
[2022-05-14] MEDS ORDERED: Oxyquinoline/Emollient 0.3% Oint 4 OZ Canister TOP PRN (09:54)
[2022-05-14] MEDS: cefTRIAXone 1 GM Vial IVPUSH SCH (15:37)
[2022-05-14] MEDS: Latanoprost 0.005% Ophth Soln 2.5 ML Bottle EYEBOTH SCH (19:53)
[2022-05-14] MEDS ORDERED: LATANOPROST 0.005% EYEBOTH SCH (20:00)
[2022-05-15] MEDS: LEVOTHYROXINE 88 MCG PO SCH (06:08)
[2022-05-15] MEDS: Pantoprazole 40 MG Tab.CR PO SCH (06:08)
[2022-05-15] MEDS: Clopidogrel 75 MG Tab *PTOM PO SCH (07:47)
[2022-05-15] MEDS: ESTRADIOL 0.5 MG PO SCH (07:50)
[2022-05-15] MEDS: HYDROCHLOROTHIAZIDE PO SCH (07:54)
[2022-05-15] MEDS: TRIAMTERENE PO SCH (07:54)
[2022-05-15] MEDS: Furosemide 40 MG Tab **PTOM PO SCH (07:54)
[2022-05-15] MEDS: Losartan 25 MG Tab PO SCH (07:58)
[2022-05-15] MEDS: Potassium Chloride 10 MEQ Tab.ER PO SCH ×3 (08:00→17:19)
[2022-05-15] MEDS: cefTRIAXone 1 GM Vial IVPUSH SCH (16:29)
[2022-05-15] MEDS ORDERED: Potassium Chloride 10 MEQ Tab.ER ONE (17:47)
[2022-05-15] MEDS: Latanoprost 0.005% Ophth Soln 2.5 ML Bottle EYEBOTH SCH (19:36)
[2022-05-16] MEDS: Pantoprazole 40 MG Tab.CR PO SCH (06:37)
[2022-05-16] MEDS: LEVOTHYROXINE 88 MCG PO SCH (06:37)
[2022-05-16] MEDS: Losartan 25 MG Tab PO SCH (07:34)
[2022-05-16] MEDS: TRIAMTERENE PO SCH (07:34)
[2022-05-16] MEDS: HYDROCHLOROTHIAZIDE PO SCH (07:34)
[2022-05-16] MEDS ORDERED: ALPRAZolam 0.25 MG Tab PO PRN (08:14)
[2022-05-16] MEDS: ESTRADIOL 0.5 MG PO SCH (08:34)
[2022-05-16] MEDS: Hydrochlorothiazide/Triamterene 25-37.5 MG Cap PO SCH (08:37)
[2022-05-16] MEDS: Potassium Chloride 10 MEQ Tab.ER PO SCH ×4 (08:39→17:12)
[2022-05-16] MEDS: Clopidogrel 75 MG Tab PO SCH (08:40)
[2022-05-16] MEDS: Furosemide 40 MG Tab PO SCH (08:40)
[2022-05-16] MEDS ORDERED: Benzonatate 100 MG Cap PO PRN (09:32)
[2022-05-16] MEDS: Furosemide 40 MG Tab **PTOM PO SCH (09:39)
[2022-05-16] MEDS: Clopidogrel 75 MG Tab *PTOM PO SCH (09:39)
[2022-05-16] MEDS: cefTRIAXone 1 GM Vial IVPUSH SCH (16:29)
[2022-05-16] MEDS: Latanoprost 0.005% Ophth Soln 2.5 ML Bottle EYEBOTH SCH (19:59)
[2022-05-17] MEDS: Pantoprazole 40 MG Tab.CR PO SCH (06:00)
[2022-05-17] MEDS ORDERED: Levothyroxine 88 MCG Tab PO SCH (07:00)
[2022-05-17] MEDS: Potassium Chloride 10 MEQ Tab.ER PO SCH (07:33)
[2022-05-17] MEDS: Hydrochlorothiazide/Triamterene 25-37.5 MG Cap PO SCH (07:33)
[2022-05-17] MEDS: Furosemide 40 MG Tab PO SCH (07:33)
[2022-05-17 07:34] VITALS: BP 148/68
[2022-05-17] MEDS: Clopidogrel 75 MG Tab PO SCH (07:34)
[2022-05-17] MEDS: Losartan 25 MG Tab PO SCH (07:34)
[2022-05-17] MEDS: ESTRADIOL 0.5 MG PO SCH (07:35)
[2022-05-17 08:20] VITALS: PULSE 63
[2022-05-17] MEDS ORDERED: cefTRIAXone 1 GM Vial IVPUSH ONE (11:00)
== END 2022-05-17 11:20 | disposition home or self-care (01) | DRG 690 ==
LOC: CC.FCMC 11:26 → CC.MS 11:26 → UNDOADMOB 13:05 → CC.MS 14:23 → INTOOBSV 05-15 11:04 → OBSVTOIN 05-15 11:04
PROVIDERS: ADMIT Family Medicine; ATTEND Nurse Practitioner Family
DX: N39.0 Urinary tract infection, site not specified (principal); Z16.12 Extended spectrum beta lactamase (ESBL) resistance; Z20.822 Contact with and (suspected) exposure to COVID-19; E78.00 Pure hypercholesterolemia, unspecified; I10 Essential (primary) hypertension; G47.30 Sleep apnea, unspecified; K21.9 Gastro-esophageal reflux disease without esophagitis; M19.90 Unspecified osteoarthritis, unspecified site; M54.9 Dorsalgia, unspecified; G89.29 Other chronic pain; M79.7 Fibromyalgia; G43.909 Migraine, unspecified, not intractable, without status migrainosus; F41.9 Anxiety disorder, unspecified; F32.A Depression, unspecified; E03.9 Hypothyroidism, unspecified; Z88.8 Allergy status to other drugs, medicaments and biological substances; M81.0 Age-related osteoporosis without current pathological fracture; D64.9 Anemia, unspecified; J06.9 Acute upper respiratory infection, unspecified; R19.7 Diarrhea, unspecified; Z79.890 Hormone replacement therapy; Z79.02 Long term (current) use of antithrombotics/antiplatelets; Z79.899 Other long term (current) drug therapy; Z88.1 Allergy status to other antibiotic agents; Z88.2 Allergy status to sulfonamides; Z88.6 Allergy status to analgesic agent; Z88.0 Allergy status to penicillin; B96.29 Other Escherichia coli [E. coli] as the cause of diseases classified elsewhere
CPT/HCPCS: 36415; 70450; 71046; 72125; 74019; 74177; 80053; 81001; 83690; 83735; 85025; 86140; 87086; 87088; 87186; 87493; 99220; 99225; 99232; 99238; A9270-GY; J0696; Q9967; U0002

== ENCOUNTER 2022-05-18 22:51 | Inpatient (IN) | payer MEDICARE, MEDICAID ==
[2022-05-19] MEDS ORDERED: Ondansetron 4 MG Tab.DIS PO PRN (01:04)
[2022-05-19] MEDS ORDERED: Sodium Chloride 0.9% 10 ML Syringe FLUSH PRN (01:04)
[2022-05-19] MEDS ORDERED: Atropine/Diphenoxylate 0.025-2.5 MG Tab PO PRN (01:04)
[2022-05-19] MEDS ORDERED: Acetaminophen 500 MG Tab PO SCH (01:04)
[2022-05-19] MEDS ORDERED: REMDESIVIR 200 MG in Sodium Chloride 0.9% 250 ML IV ONE (01:04)
[2022-05-19] MEDS ORDERED: cefTRIAXone 1 GM Vial IVPUSH SCH (01:04)
[2022-05-19] MEDS ORDERED: Ondansetron 4 MG/2 ML SDV IV PRN (01:04)
[2022-05-19] MEDS: Sodium Chloride 0.9% 1,000 ML IV SCH ×2 (01:38→14:17)
[2022-05-19] MEDS ORDERED: Non-Formulary Medication 1 Each (Omega-3 Fatty Acids/Fish Oil [Fish Oil 1,000 Mg Capsule] PO SCH ×2 (08:00)
[2022-05-19] MEDS ORDERED: Hydrochlorothiazide/Triamterene 25-37.5 MG Cap PO SCH (08:00)
[2022-05-19] MEDS: Multivitamin Tab PO SCH (08:24)
[2022-05-19] MEDS: Levothyroxine 88 MCG Tab PO SCH (08:24)
[2022-05-19] MEDS: Clopidogrel 75 MG Tab PO SCH (08:24)
[2022-05-19] MEDS: Hydrochlorothiazide/Triamterene 25-37.5 MG Cap PO SCH (08:24)
[2022-05-19] MEDS: Furosemide 40 MG Tab PO SCH (08:25)
[2022-05-19] MEDS: Potassium Chloride 10 MEQ Tab.ER PO SCH ×3 (08:25→18:32)
[2022-05-19] MEDS: Estradiol 1 MG Tab PO SCH (08:25)
[2022-05-19] MEDS: Losartan 25 MG Tab PO SCH (08:30)
[2022-05-19] MEDS ORDERED: Potassium Chloride 10 MEQ Tab.ER PO ONE (12:00)
[2022-05-19] MEDS: Acetaminophen 500 MG Tab PO PRN ×2 (14:38→22:00)
[2022-05-19] MEDS: Heparin Sodium 5,000 Units/ML Vial SUBCUT SCH (19:53)
[2022-05-19] MEDS: REMDESIVIR 100 MG in Sodium Chloride 0.9% 100 ML IV SCH (19:53)
[2022-05-19] MEDS: Fluticasone NASAL Spray 16 GM Bottle NASBOTH SCH (19:55)
[2022-05-19] MEDS: Latanoprost 0.005% Ophth Soln 2.5 ML Bottle EYEBOTH SCH (19:56)
[2022-05-20] MEDS: Sodium Chloride 0.9% 1,000 ML IV SCH (05:09)
[2022-05-20] MEDS: Heparin Sodium 5,000 Units/ML Vial SUBCUT SCH ×2 (08:04→20:22)
[2022-05-20] MEDS: Potassium Chloride 10 MEQ Tab.ER PO SCH ×3 (08:06→17:12)
[2022-05-20] MEDS: Levothyroxine 88 MCG Tab PO SCH (08:07)
[2022-05-20] MEDS: Estradiol 1 MG Tab PO SCH (08:07)
[2022-05-20] MEDS: Multivitamin Tab PO SCH (08:07)
[2022-05-20] MEDS: Clopidogrel 75 MG Tab PO SCH (08:07)
[2022-05-20] MEDS: Furosemide 40 MG Tab PO SCH (08:07)
[2022-05-20] MEDS: Losartan 25 MG Tab PO SCH (08:23)
[2022-05-20] MEDS: Hydrochlorothiazide/Triamterene 25-37.5 MG Cap PO SCH (08:23)
[2022-05-20] MEDS: Acetaminophen 500 MG Tab PO PRN ×2 (13:09→20:26)
[2022-05-20] MEDS ORDERED: Iopamidol 755 Mg/ML 100 ML Bottle IVPUSH ONE (13:57)
[2022-05-20] MEDS: Fluticasone NASAL Spray 16 GM Bottle NASBOTH SCH (20:22)
[2022-05-20] MEDS: REMDESIVIR 100 MG ONE ×2 (20:23→20:25)
[2022-05-20] MEDS: Latanoprost 0.005% Ophth Soln 2.5 ML Bottle EYEBOTH SCH (20:23)
[2022-05-20] MEDS: REMDESIVIR 100 MG in Sodium Chloride 0.9% 100 ML IV SCH (20:25)
[2022-05-21] MEDS: Heparin Sodium 5,000 Units/ML Vial SUBCUT SCH ×2 (08:07→20:04)
[2022-05-21] MEDS: Hydrochlorothiazide/Triamterene 25-37.5 MG Cap PO SCH (08:11)
[2022-05-21] MEDS: Clopidogrel 75 MG Tab PO SCH (08:12)
[2022-05-21] MEDS: Levothyroxine 88 MCG Tab PO SCH (08:12)
[2022-05-21] MEDS: Potassium Chloride 10 MEQ Tab.ER PO SCH ×3 (08:12→17:13)
[2022-05-21] MEDS: Losartan 25 MG Tab PO SCH (08:12)
[2022-05-21] MEDS: Furosemide 40 MG Tab PO SCH (08:12)
[2022-05-21] MEDS: Multivitamin Tab PO SCH (08:12)
[2022-05-21] MEDS: Estradiol 1 MG Tab PO SCH (08:12)
[2022-05-21] MEDS: Acetaminophen 500 MG Tab PO PRN ×2 (08:50→21:40)
[2022-05-21] MEDS ORDERED: Oxyquinoline/Emollient 0.3% Oint 4 OZ Canister TOP PRN (11:22)
[2022-05-21] MEDS: REMDESIVIR 100 MG in Sodium Chloride 0.9% 100 ML IV SCH (20:04)
[2022-05-21] MEDS: Latanoprost 0.005% Ophth Soln 2.5 ML Bottle EYEBOTH SCH (20:05)
[2022-05-21] MEDS: Fluticasone NASAL Spray 16 GM Bottle NASBOTH SCH (20:05)
[2022-05-21] MEDS: ALPRAZolam 0.25 MG Tab PO PRN ×2 (21:27)
[2022-05-22] MEDS: Heparin Sodium 5,000 Units/ML Vial SUBCUT SCH (07:28)
[2022-05-22] MEDS: Estradiol 1 MG Tab PO SCH (07:32)
[2022-05-22] MEDS: Clopidogrel 75 MG Tab PO SCH (07:32)
[2022-05-22] MEDS: Losartan 25 MG Tab PO SCH (07:32)
[2022-05-22] MEDS: Furosemide 40 MG Tab PO SCH (07:32)
[2022-05-22] MEDS: Hydrochlorothiazide/Triamterene 25-37.5 MG Cap PO SCH (07:32)
[2022-05-22] MEDS: Levothyroxine 88 MCG Tab PO SCH (07:32)
[2022-05-22] MEDS: Potassium Chloride 10 MEQ Tab.ER PO SCH (07:32)
[2022-05-22 07:33] VITALS: BP 149/63
[2022-05-22] MEDS: Multivitamin Tab PO SCH (07:33)
[2022-05-22] MEDS: Acetaminophen 500 MG Tab PO PRN (08:14)
[2022-05-22 08:21] VITALS: PULSE 69
== END 2022-05-22 11:03 | disposition swing bed (61) | DRG 179 ==
LOC: CC.ED 22:51 → CC.MS 05-19 00:45 → UNDOADMIN 05-19 00:45 → CC.MS 05-19 00:48 → UNDOADMIN 05-19 03:12
PROVIDERS: ADMIT Nurse Practitioner Family; ATTEND Nurse Practitioner Family
PROC: XW033E5 Introduction of Remdesivir Anti-infective into Peripheral Vein, Percutaneous Approach, New Technology Group 5 (ICD-10-PCS; principal; 2022-05-19)
DX: U07.1 COVID-19 (principal); R19.7 Diarrhea, unspecified; E87.6 Hypokalemia; J06.9 Acute upper respiratory infection, unspecified; R79.89 Other specified abnormal findings of blood chemistry; R07.81 Pleurodynia; R53.1 Weakness; N30.00 Acute cystitis without hematuria; E78.00 Pure hypercholesterolemia, unspecified; I10 Essential (primary) hypertension; G47.30 Sleep apnea, unspecified; M54.9 Dorsalgia, unspecified; K21.9 Gastro-esophageal reflux disease without esophagitis; J30.9 Allergic rhinitis, unspecified; G43.909 Migraine, unspecified, not intractable, without status migrainosus; M19.90 Unspecified osteoarthritis, unspecified site; M79.7 Fibromyalgia; E03.9 Hypothyroidism, unspecified; F32.A Depression, unspecified; F41.9 Anxiety disorder, unspecified; M81.0 Age-related osteoporosis without current pathological fracture; G89.29 Other chronic pain; M54.50 Low back pain, unspecified; D64.9 Anemia, unspecified; Z88.0 Allergy status to penicillin; Z88.6 Allergy status to analgesic agent; Z88.1 Allergy status to other antibiotic agents; Z88.2 Allergy status to sulfonamides; R79.1 Abnormal coagulation profile; Z88.8 Allergy status to other drugs, medicaments and biological substances; Z79.02 Long term (current) use of antithrombotics/antiplatelets; Z79.890 Hormone replacement therapy; Z79.899 Other long term (current) drug therapy
CPT/HCPCS: 36415; 71046; 73562; 80053; 83690; 85025; 86140; 99285; U0002; 71275; 81001; 82248; 83735; 85379; 97110-GP; 97161-GP; 99223; 99232; 99233; 99238; A9270-GY; J0696; J1644; J7030; J7050; Q9967

== ENCOUNTER 2022-05-22 10:58 | Inpatient (IN) | payer MEDICARE, MEDICAID ==
[2022-05-22] MEDS ORDERED: Ondansetron 4 MG Tab.DIS PO PRN (11:36)
[2022-05-22] MEDS: Potassium Chloride 10 MEQ Tab.ER PO SCH ×2 (12:27→17:00)
[2022-05-22] MEDS ORDERED: Oxyquinoline/Emollient 0.3% Oint 4 OZ Canister TOP PRN (13:02)
[2022-05-22] MEDS: Heparin Sodium 5,000 Units/ML Vial SUBCUT SCH (19:53)
[2022-05-22] MEDS: REMDESIVIR 100 MG in Sodium Chloride 0.9% 100 ML IV SCH (19:53)
[2022-05-22] MEDS: Latanoprost 0.005% Ophth Soln 2.5 ML Bottle EYEBOTH SCH (19:54)
[2022-05-22] MEDS: Fluticasone NASAL Spray 16 GM Bottle NASBOTH SCH (19:54)
[2022-05-22] MEDS: ALPRAZolam 0.25 MG Tab PO PRN (21:10)
[2022-05-23] MEDS: Furosemide 40 MG Tab PO SCH (07:50)
[2022-05-23] MEDS: Hydrochlorothiazide/Triamterene 25-37.5 MG Cap PO SCH (07:50)
[2022-05-23] MEDS: Clopidogrel 75 MG Tab PO SCH (07:51)
[2022-05-23] MEDS: Potassium Chloride 10 MEQ Tab.ER PO SCH ×3 (07:51→16:51)
[2022-05-23] MEDS: Heparin Sodium 5,000 Units/ML Vial SUBCUT SCH ×2 (07:52→19:26)
[2022-05-23] MEDS: Multivitamin Tab PO SCH (07:52)
[2022-05-23] MEDS: Estradiol 1 MG Tab PO SCH (07:52)
[2022-05-23] MEDS: Levothyroxine 88 MCG Tab PO SCH (07:52)
[2022-05-23] MEDS: Losartan 100 MG Tab PO SCH (07:53)
[2022-05-23] MEDS: Acetaminophen 325 MG Tab PO PRN (08:25)
[2022-05-23] MEDS: Latanoprost 0.005% Ophth Soln 2.5 ML Bottle EYEBOTH SCH (19:26)
[2022-05-23] MEDS: REMDESIVIR 100 MG in Sodium Chloride 0.9% 100 ML IV SCH (19:26)
[2022-05-23] MEDS: Fluticasone NASAL Spray 16 GM Bottle NASBOTH SCH (19:26)
[2022-05-23] MEDS: ALPRAZolam 0.25 MG Tab PO PRN (20:46)
[2022-05-24] MEDS: Levothyroxine 88 MCG Tab PO SCH (08:15)
[2022-05-24] MEDS: Heparin Sodium 5,000 Units/ML Vial SUBCUT SCH ×2 (08:15→19:26)
[2022-05-24] MEDS: Estradiol 1 MG Tab PO SCH (08:17)
[2022-05-24] MEDS: Multivitamin Tab PO SCH (08:17)
[2022-05-24] MEDS: Clopidogrel 75 MG Tab PO SCH (08:18)
[2022-05-24] MEDS: Furosemide 40 MG Tab PO SCH (08:18)
[2022-05-24] MEDS: Hydrochlorothiazide/Triamterene 25-37.5 MG Cap PO SCH (08:18)
[2022-05-24] MEDS: Potassium Chloride 10 MEQ Tab.ER PO SCH ×3 (08:19→17:28)
[2022-05-24] MEDS: Losartan 100 MG Tab PO SCH (08:31)
[2022-05-24] MEDS: Acetaminophen 325 MG Tab PO PRN (11:18)
[2022-05-24] MEDS: ALPRAZolam 0.25 MG Tab PO PRN (19:36)
[2022-05-24] MEDS: Fluticasone NASAL Spray 16 GM Bottle NASBOTH SCH (19:41)
[2022-05-24] MEDS: Latanoprost 0.005% Ophth Soln 2.5 ML Bottle EYEBOTH SCH (19:42)
[2022-05-25] MEDS: Hydrochlorothiazide/Triamterene 25-37.5 MG Cap PO SCH (08:19)
[2022-05-25] MEDS: Furosemide 40 MG Tab PO SCH (08:20)
[2022-05-25] MEDS: Levothyroxine 88 MCG Tab PO SCH (08:21)
[2022-05-25] MEDS: Clopidogrel 75 MG Tab PO SCH (08:21)
[2022-05-25] MEDS: Estradiol 1 MG Tab PO SCH (08:22)
[2022-05-25] MEDS: Potassium Chloride 10 MEQ Tab.ER PO SCH ×3 (08:22→17:04)
[2022-05-25] MEDS: Heparin Sodium 5,000 Units/ML Vial SUBCUT SCH ×2 (08:23→19:56)
[2022-05-25] MEDS: Multivitamin Tab PO SCH (08:26)
[2022-05-25] MEDS: Losartan 100 MG Tab PO SCH (08:26)
[2022-05-25] MEDS: Fluticasone NASAL Spray 16 GM Bottle NASBOTH SCH (19:55)
[2022-05-25] MEDS: Latanoprost 0.005% Ophth Soln 2.5 ML Bottle EYEBOTH SCH (19:55)
[2022-05-25] MEDS: Acetaminophen 325 MG Tab PO PRN (19:57)
[2022-05-25] MEDS: ALPRAZolam 0.25 MG Tab PO PRN (20:43)
[2022-05-26] MEDS: Furosemide 40 MG Tab PO SCH (08:13)
[2022-05-26] MEDS: Hydrochlorothiazide/Triamterene 25-37.5 MG Cap PO SCH (08:13)
[2022-05-26] MEDS: Heparin Sodium 5,000 Units/ML Vial SUBCUT SCH ×2 (08:13→19:46)
[2022-05-26] MEDS: Clopidogrel 75 MG Tab PO SCH (08:13)
[2022-05-26] MEDS: Estradiol 1 MG Tab PO SCH (08:13)
[2022-05-26] MEDS: Losartan 100 MG Tab PO SCH (08:14)
[2022-05-26] MEDS: Levothyroxine 88 MCG Tab PO SCH (08:14)
[2022-05-26] MEDS: Potassium Chloride 10 MEQ Tab.ER PO SCH ×3 (08:14→16:41)
[2022-05-26] MEDS: Multivitamin Tab PO SCH (08:14)
[2022-05-26] MEDS: Fluticasone NASAL Spray 16 GM Bottle NASBOTH SCH (19:50)
[2022-05-26] MEDS: Latanoprost 0.005% Ophth Soln 2.5 ML Bottle EYEBOTH SCH (19:51)
[2022-05-26] MEDS: ALPRAZolam 0.25 MG Tab PO PRN (23:01)
[2022-05-26] MEDS: Acetaminophen 325 MG Tab PO PRN (23:01)
[2022-05-27] MEDS: Hydrochlorothiazide/Triamterene 25-37.5 MG Cap PO SCH (07:57)
[2022-05-27] MEDS: Estradiol 1 MG Tab PO SCH (07:57)
[2022-05-27] MEDS: Multivitamin Tab PO SCH (07:58)
[2022-05-27] MEDS: Potassium Chloride 10 MEQ Tab.ER PO SCH ×3 (07:58→17:12)
[2022-05-27] MEDS: Furosemide 40 MG Tab PO SCH (07:58)
[2022-05-27] MEDS: Levothyroxine 88 MCG Tab PO SCH (07:59)
[2022-05-27] MEDS: Losartan 100 MG Tab PO SCH (07:59)
[2022-05-27] MEDS: Clopidogrel 75 MG Tab PO SCH (08:00)
[2022-05-27] MEDS: Heparin Sodium 5,000 Units/ML Vial SUBCUT SCH ×2 (08:00→19:14)
[2022-05-27] MEDS: Fluticasone NASAL Spray 16 GM Bottle NASBOTH SCH (19:13)
[2022-05-27] MEDS: Latanoprost 0.005% Ophth Soln 2.5 ML Bottle EYEBOTH SCH (19:13)
[2022-05-27] MEDS: Acetaminophen 325 MG Tab PO PRN (22:43)
[2022-05-27] MEDS: ALPRAZolam 0.25 MG Tab PO PRN (22:43)
[2022-05-28] MEDS: Hydrochlorothiazide/Triamterene 25-37.5 MG Cap PO SCH (07:33)
[2022-05-28] MEDS: Multivitamin Tab PO SCH (07:33)
[2022-05-28] MEDS: Losartan 100 MG Tab PO SCH (07:34)
[2022-05-28] MEDS: Estradiol 1 MG Tab PO SCH (07:35)
[2022-05-28] MEDS: Heparin Sodium 5,000 Units/ML Vial SUBCUT SCH ×2 (07:36→19:47)
[2022-05-28] MEDS: Furosemide 40 MG Tab PO SCH (07:36)
[2022-05-28] MEDS: Potassium Chloride 10 MEQ Tab.ER PO SCH ×3 (07:36→16:56)
[2022-05-28] MEDS: Levothyroxine 88 MCG Tab PO SCH (07:36)
[2022-05-28] MEDS: Clopidogrel 75 MG Tab PO SCH (07:36)
[2022-05-28] MEDS: Fluticasone NASAL Spray 16 GM Bottle NASBOTH SCH (19:47)
[2022-05-28] MEDS: Latanoprost 0.005% Ophth Soln 2.5 ML Bottle EYEBOTH SCH (19:48)
[2022-05-28] MEDS: ALPRAZolam 0.25 MG Tab PO PRN (22:28)
[2022-05-28] MEDS: Acetaminophen 325 MG Tab PO PRN (22:28)
[2022-05-29] MEDS: Levothyroxine 88 MCG Tab PO SCH (07:34)
[2022-05-29] MEDS: Furosemide 40 MG Tab PO SCH (07:34)
[2022-05-29] MEDS: Potassium Chloride 10 MEQ Tab.ER PO SCH ×3 (07:34→16:56)
[2022-05-29] MEDS: Clopidogrel 75 MG Tab PO SCH (07:34)
[2022-05-29] MEDS: Hydrochlorothiazide/Triamterene 25-37.5 MG Cap PO SCH (07:34)
[2022-05-29] MEDS: Multivitamin Tab PO SCH (07:34)
[2022-05-29] MEDS: Estradiol 1 MG Tab PO SCH (07:35)
[2022-05-29] MEDS: Losartan 100 MG Tab PO SCH (07:35)
[2022-05-29] MEDS: Heparin Sodium 5,000 Units/ML Vial SUBCUT SCH ×2 (07:36→19:24)
[2022-05-29] MEDS: Atropine/Diphenoxylate 0.025-2.5 MG Tab PO PRN ×2 (11:50→16:55)
[2022-05-29] MEDS: Fluticasone NASAL Spray 16 GM Bottle NASBOTH SCH (19:28)
[2022-05-29] MEDS: Latanoprost 0.005% Ophth Soln 2.5 ML Bottle EYEBOTH SCH (19:28)
[2022-05-29] MEDS: ALPRAZolam 0.25 MG Tab PO PRN (23:30)
[2022-05-29] MEDS: Acetaminophen 325 MG Tab PO PRN (23:30)
[2022-05-30] MEDS: Losartan 100 MG Tab PO SCH (07:16)
[2022-05-30] MEDS: Heparin Sodium 5,000 Units/ML Vial SUBCUT SCH ×2 (07:16→19:37)
[2022-05-30] MEDS: Potassium Chloride 10 MEQ Tab.ER PO SCH ×3 (07:17→17:11)
[2022-05-30] MEDS: Clopidogrel 75 MG Tab PO SCH (07:18)
[2022-05-30] MEDS: Estradiol 1 MG Tab PO SCH (07:18)
[2022-05-30] MEDS: Hydrochlorothiazide/Triamterene 25-37.5 MG Cap PO SCH (07:18)
[2022-05-30] MEDS: Furosemide 40 MG Tab PO SCH (07:19)
[2022-05-30] MEDS: Levothyroxine 88 MCG Tab PO SCH (07:20)
[2022-05-30] MEDS: Multivitamin Tab PO SCH (07:20)
[2022-05-30] MEDS: Latanoprost 0.005% Ophth Soln 2.5 ML Bottle EYEBOTH SCH (19:28)
[2022-05-30] MEDS: Fluticasone NASAL Spray 16 GM Bottle NASBOTH SCH (19:29)
[2022-05-30] MEDS: Acetaminophen 325 MG Tab PO PRN (22:13)
[2022-05-30] MEDS: ALPRAZolam 0.25 MG Tab PO PRN (22:13)
[2022-05-31] MEDS: Multivitamin Tab PO SCH (07:55)
[2022-05-31] MEDS: Furosemide 40 MG Tab PO SCH (07:55)
[2022-05-31] MEDS: Losartan 100 MG Tab PO SCH (07:55)
[2022-05-31] MEDS: Heparin Sodium 5,000 Units/ML Vial SUBCUT SCH ×2 (07:55→19:37)
[2022-05-31] MEDS: Hydrochlorothiazide/Triamterene 25-37.5 MG Cap PO SCH (07:56)
[2022-05-31] MEDS: Estradiol 1 MG Tab PO SCH (07:56)
[2022-05-31] MEDS: Potassium Chloride 10 MEQ Tab.ER PO SCH ×3 (07:56→16:31)
[2022-05-31] MEDS: Clopidogrel 75 MG Tab PO SCH (07:56)
[2022-05-31] MEDS: Levothyroxine 88 MCG Tab PO SCH (07:56)
[2022-05-31] MEDS ORDERED: COVID 19 MRNA VACCINE IM ONE (15:15)
[2022-05-31] MEDS ORDERED: Bacitracin/Neomycin/Polymyxin B Oint 0.9 GM U/D Packet TOP ONE (17:32)
[2022-05-31] MEDS: Latanoprost 0.005% Ophth Soln 2.5 ML Bottle EYEBOTH SCH (19:44)
[2022-05-31] MEDS: Fluticasone NASAL Spray 16 GM Bottle NASBOTH SCH (19:46)
[2022-05-31] MEDS: ALPRAZolam 0.25 MG Tab PO PRN (21:43)
[2022-05-31] MEDS: Acetaminophen 325 MG Tab PO PRN (21:43)
[2022-06-01] MEDS: Heparin Sodium 5,000 Units/ML Vial SUBCUT SCH (07:38)
[2022-06-01] MEDS: Multivitamin Tab PO SCH (07:38)
[2022-06-01] MEDS: Levothyroxine 88 MCG Tab PO SCH (07:38)
[2022-06-01] MEDS: Furosemide 40 MG Tab PO SCH (07:38)
[2022-06-01] MEDS: Losartan 100 MG Tab PO SCH (07:38)
[2022-06-01] MEDS: Hydrochlorothiazide/Triamterene 25-37.5 MG Cap PO SCH (07:38)
[2022-06-01] MEDS: Estradiol 1 MG Tab PO SCH (07:38)
[2022-06-01] MEDS: Clopidogrel 75 MG Tab PO SCH (07:38)
[2022-06-01 07:39] VITALS: BP 120/95
[2022-06-01] MEDS: Potassium Chloride 10 MEQ Tab.ER PO SCH (07:39)
[2022-06-01] MEDS: Acetaminophen 325 MG Tab PO PRN (07:53)
[2022-06-01 09:06] VITALS: PULSE 88
== END 2022-06-01 09:00 | DRG 947 ==
LOC: CC.MS 10:58 → UNDOADMIN 10:58 → CC.MS 11:36
PROVIDERS: ADMIT Nurse Practitioner Family; ATTEND Nurse Practitioner Family
DX: R53.81 Other malaise (principal); U07.1 COVID-19; N30.00 Acute cystitis without hematuria; E87.6 Hypokalemia; J06.9 Acute upper respiratory infection, unspecified; R79.89 Other specified abnormal findings of blood chemistry; R07.81 Pleurodynia
CPT/HCPCS: 0013A; 36415; 80053; 82248; 85025; 91301; 97110-GP; 97112-GP; 97530-GP; 99307; 99315; A9270-GY; J1644

== ENCOUNTER 2023-07-30 10:56 | Emergency (ER) | payer MEDICARE, MEDICAID ==
[2023-07-30 11:10] VITALS: BP 117/73; PULSE 105
[2023-07-30 11:43] LABS: BASOPHILS ABSOLUTE AUTO 0.03 10^3/uL (0.00-0.50); BASOPHILS PERCENT AUTO 0.2 % (0-1); EOSINOPHILS ABSOLUTE AUTO 0.78 10^3/uL (0.00-1.50); EOSINOPHILS PERCENT AUTO 5.4 % (0-6); HEMOGLOBIN 12.3 g/dL (12.0-16.0); IMMATURE GRAN ABSOLUTE AUTO 0.03 10^3/uL (0.00-0.49); IMMATURE GRAN PERCENT AUTO 0.2 % (0.0-4.9); LYMPHOCYTES ABSOLUTE AUTO 2.85 10^3/uL (0.60-5.00); LYMPHOCYTES PERCENT AUTO 19.7 % (24-44); MEAN CORPUSCULAR HEMOGLOBIN 30.7 pg (27.0-32.0); MEAN CORPUSCULAR HGB CONC 34.2 g/dL (32.0-36.0); MEAN CORPUSCULAR VOLUME 89.8 fL (83.0-97.0); MONOCYTES ABSOLUTE AUTO 1.12 10^3/uL (0.00-1.50); MONOCYTES PERCENT AUTO 7.8 % (0-10); NEUTROPHILS ABSOLUTE AUTO 9.63 x10^3/uL (1.80-8.00); NEUTROPHILS PERCENT AUTO 66.7 % (41-71); PLATELET COUNT,PLT 422 10^3/uL (150-400); RED BLOOD CELL COUNT 4.01 x10^6/uL (4.00-5.50); WHITE BLOOD CELL COUNT,WBC 14.4 10^3/uL (4.0-11.0)
[2023-07-30 11:44] LABS: APPEARANCE,URINE CLEAR (CLEAR); BILIRUBIN,URINE NEGATIVE (NEGATIVE); COLOR,URINE YELLOW (YELLOW); GLUCOSE,URINE NEGATIVE (NEGATIVE); KETONES,URINE NEGATIVE (NEGATIVE); LEUKOCYTE ESTERASE,URINE NEGATIVE (NEGATIVE); NITRITE,URINE NEGATIVE (NEGATIVE); OCCULT BLOOD,URINE NEGATIVE (NEGATIVE); PROTEIN,URINE NEGATIVE (NEGATIVE); UROBILINOGEN,URINE 0.2 EU/dL (0.2-1.0)
[2023-07-30 11:56] LABS: ALBUMIN 3.5 g/dL (3.4-5.0); BILIRUBIN TOTAL 0.2 mg/dL (0.0-1.0); C-REACTIVE PROTEIN 6.72 mg/dL (<=0.30); CALCIUM 9.9 mg/dL (8.4-10.1); EST CRCL DRUG DOSING (CG) 29.34 mL/min; MAGNESIUM 1.6 mg/dL (1.8-2.4); POTASSIUM,K 3.3 mEq/L (3.5-5.0); PROTEIN TOTAL,TP 7.9 g/dL (6.4-8.2)
[2023-07-30] MEDS ORDERED: Azithromycin 250 MG Tab PO ONE (12:11)
[2023-07-30] MEDS ORDERED: Take Home: Azithromycin 250 MG, 2 Tab Pack PO ONE (12:11)
[2023-07-30] MEDS ORDERED: Take Home: predniSONE 20 MG, 2 Tab Pack PO ONE (12:11)
[2023-07-30] MEDS ORDERED: Potassium Chloride 10 MEQ Tab.ER PO ONE (12:12)
== END 2023-07-30 12:35 | disposition home or self-care (01) ==
LOC: CC.ED 10:56
DX: J40 Bronchitis, not specified as acute or chronic (principal); E87.6 Hypokalemia; I10 Essential (primary) hypertension; E03.9 Hypothyroidism, unspecified; Z20.822 Contact with and (suspected) exposure to COVID-19; Z88.0 Allergy status to penicillin; Z88.1 Allergy status to other antibiotic agents; Z88.2 Allergy status to sulfonamides; Z88.6 Allergy status to analgesic agent; Z88.8 Allergy status to other drugs, medicaments and biological substances; Z79.899 Other long term (current) drug therapy
CPT/HCPCS: 36415; 71046; 80053; 81003; 83735; 85025; 86140; 87804; 99283; 99284; A9270-GY; J7512; U0002

== ENCOUNTER 2023-10-01 10:15 | Emergency (ER) | payer MEDICARE, MEDICAID ==
[2023-10-01 11:06] LABS: BASOPHILS ABSOLUTE AUTO 0.03 10^3/uL (0.00-0.50); BASOPHILS PERCENT AUTO 0.3 % (0-1); EOSINOPHILS ABSOLUTE AUTO 0.85 10^3/uL (0.00-1.50); EOSINOPHILS PERCENT AUTO 8.9 % (0-6); HEMATOCRIT 36.6 % (37.0-47.0); IMMATURE GRAN ABSOLUTE AUTO 0.02 10^3/uL (0.00-0.49); IMMATURE GRAN PERCENT AUTO 0.2 % (0.0-4.9); LYMPHOCYTES ABSOLUTE AUTO 2.77 10^3/uL (0.60-5.00); MEAN CORPUSCULAR HEMOGLOBIN 30.5 pg (27.0-32.0); MEAN CORPUSCULAR HGB CONC 32.8 g/dL (32.0-36.0); MEAN CORPUSCULAR VOLUME 93.1 fL (83.0-97.0); MONOCYTES ABSOLUTE AUTO 0.65 10^3/uL (0.00-1.50); MONOCYTES PERCENT AUTO 6.8 % (0-10); NEUTROPHILS ABSOLUTE AUTO 5.24 x10^3/uL (1.80-8.00); NEUTROPHILS PERCENT AUTO 54.8 % (41-71); PLATELET COUNT,PLT 406 10^3/uL (150-400); RED BLOOD CELL COUNT 3.93 x10^6/uL (4.00-5.50); WHITE BLOOD CELL COUNT,WBC 9.6 10^3/uL (4.0-11.0)
[2023-10-01 11:25] LABS: ALBUMIN 3.2 g/dL (3.4-5.0); BILIRUBIN TOTAL 0.2 mg/dL (0.0-1.0); C-REACTIVE PROTEIN 0.67 mg/dL (<=0.50); CALCIUM 9.8 mg/dL (8.4-10.1); CREATININE 0.9 mg/dL (0.6-1.0); EST CRCL DRUG DOSING (CG) 32.6 mL/min; MAGNESIUM 1.9 mg/dL (1.8-2.4); POTASSIUM,K 3.9 mEq/L (3.5-5.0); PROTEIN TOTAL,TP 7.4 g/dL (6.4-8.2)
[2023-10-01 12:46] LABS: APPEARANCE,URINE CLEAR (CLEAR); BILIRUBIN,URINE NEGATIVE (NEGATIVE); COLOR,URINE YELLOW (YELLOW); GLUCOSE,URINE NEGATIVE (NEGATIVE); KETONES,URINE NEGATIVE (NEGATIVE); LEUKOCYTE ESTERASE,URINE NEGATIVE (NEGATIVE); NITRITE,URINE NEGATIVE (NEGATIVE); OCCULT BLOOD,URINE NEGATIVE (NEGATIVE); PROTEIN,URINE NEGATIVE (NEGATIVE); UROBILINOGEN,URINE 0.2 EU/dL (0.2-1.0)
[2023-10-01 13:15] LABS: CORONAVIRUS COVID-19 NAA NEGATIVE (NEGATIVE); INFLUENZA A NAA NEGATIVE (NEGATIVE); INFLUENZA B NAA NEGATIVE (NEGATIVE); RESPIRATORY SYNCYTIAL VIR NAA NEGATIVE (NEGATIVE)
[2023-10-01] MEDS ORDERED: Furosemide 20 MG Tab PO ONE (13:34)
[2023-10-01 15:37] VITALS: BP 144/69; PULSE 77
== END 2023-10-01 13:35 | disposition home or self-care (01) ==
LOC: CC.ED 10:15
DX: I11.0 Hypertensive heart disease with heart failure (principal); I50.9 Heart failure, unspecified; E03.9 Hypothyroidism, unspecified; Z79.02 Long term (current) use of antithrombotics/antiplatelets; Z20.822 Contact with and (suspected) exposure to COVID-19; Z79.899 Other long term (current) drug therapy; Z88.0 Allergy status to penicillin; Z88.1 Allergy status to other antibiotic agents; Z88.2 Allergy status to sulfonamides; Z88.6 Allergy status to analgesic agent
CPT/HCPCS: 0241U; 36415; 71046; 80053; 81003; 83735; 83880; 84484; 85025; 86140; 93010; 99284; A9270-GY

== ENCOUNTER 2023-11-14 15:43 | Observation (INO) | payer MEDICAID, MEDICARE ==
[2023-11-14 15:52] LABS: BASOPHILS ABSOLUTE AUTO 0.04 10^3/uL (0.00-0.50); BASOPHILS PERCENT AUTO 0.4 % (0-1); EOSINOPHILS PERCENT AUTO 11.1 % (0-6); HEMOGLOBIN 11.9 g/dL (12.0-16.0); IMMATURE GRAN ABSOLUTE AUTO 0.01 10^3/uL (0.00-0.49); IMMATURE GRAN PERCENT AUTO 0.1 % (0.0-4.9); LYMPHOCYTES ABSOLUTE AUTO 2.53 10^3/uL (0.60-5.00); LYMPHOCYTES PERCENT AUTO 28.2 % (24-44); MEAN CORPUSCULAR HEMOGLOBIN 30.5 pg (27.0-32.0); MEAN CORPUSCULAR HGB CONC 33.1 g/dL (32.0-36.0); MEAN CORPUSCULAR VOLUME 92.3 fL (83.0-97.0); MONOCYTES ABSOLUTE AUTO 0.63 10^3/uL (0.00-1.50); NEUTROPHILS ABSOLUTE AUTO 4.76 x10^3/uL (1.80-8.00); NEUTROPHILS PERCENT AUTO 53.2 % (41-71); PLATELET COUNT,PLT 382 10^3/uL (150-400)
[2023-11-14 15:58] LABS: APPEARANCE,URINE CLEAR (CLEAR); BILIRUBIN,URINE NEGATIVE (NEGATIVE); COLOR,URINE YELLOW (YELLOW); GLUCOSE,URINE NEGATIVE (NEGATIVE); KETONES,URINE NEGATIVE (NEGATIVE); LEUKOCYTE ESTERASE,URINE NEGATIVE (NEGATIVE); NITRITE,URINE NEGATIVE (NEGATIVE); OCCULT BLOOD,URINE NEGATIVE (NEGATIVE); PROTEIN,URINE NEGATIVE (NEGATIVE); UROBILINOGEN,URINE 0.2 EU/dL (0.2-1.0)
[2023-11-14 16:15] LABS: BILIRUBIN TOTAL 0.2 mg/dL (0.0-1.0); C-REACTIVE PROTEIN 4.04 mg/dL (<=0.50); CREATININE 0.9 mg/dL (0.6-1.0); EST CRCL DRUG DOSING (CG) 35.74 mL/min; POTASSIUM,K 4.1 mEq/L (3.5-5.0); PROTEIN TOTAL,TP 7.3 g/dL (6.4-8.2)
[2023-11-14 16:27] LABS: CORONAVIRUS COVID-19 NAA NEGATIVE (NEGATIVE); INFLUENZA A NAA NEGATIVE (NEGATIVE); INFLUENZA B NAA NEGATIVE (NEGATIVE); RESPIRATORY SYNCYTIAL VIR NAA NEGATIVE (NEGATIVE)
[2023-11-14] MEDS ORDERED: Ondansetron 4 MG/2 ML SDV IV PRN (17:45)
[2023-11-14] MEDS ORDERED: Polyethylene Glycol 3350 Powder 17 GM Packet PO PRN (17:45)
[2023-11-14] MEDS ORDERED: Meclizine 12.5 MG Tab PO PRN (17:45)
[2023-11-14] MEDS ORDERED: Docusate Sodium 100 MG Cap PO PRN (17:45)
[2023-11-14] MEDS ORDERED: Ondansetron 4 MG Tab.DIS PO PRN (17:45)
[2023-11-14] MEDS ORDERED: Sodium Chloride 0.9% 10 ML Syringe FLUSH PRN (17:45)
[2023-11-14] MEDS: Meclizine 12.5 MG Tab PO ONE (19:13)
[2023-11-14] MEDS: Latanoprost 0.005% Ophth Soln 2.5 ML Bottle EYEBOTH SCH (19:14)
[2023-11-14] MEDS: Fluticasone NASAL Spray 16 GM Bottle NASBOTH SCH (19:14)
[2023-11-14] MEDS: Carbamide Peroxide 6.5% Otic Soln 15 ML Bottle EARBOTH PRN (21:12)
[2023-11-14] MEDS: ALPRAZolam 0.25 MG Tab PO PRN (23:17)
[2023-11-15 11:31] LABS: BASOPHILS ABSOLUTE AUTO 0.03 10^3/uL (0.00-0.50); BASOPHILS PERCENT AUTO 0.3 % (0-1); EOSINOPHILS ABSOLUTE AUTO 1.01 10^3/uL (0.00-1.50); EOSINOPHILS PERCENT AUTO 10.4 % (0-6); HEMATOCRIT 33.5 % (37.0-47.0); IMMATURE GRAN ABSOLUTE AUTO 0.01 10^3/uL (0.00-0.49); IMMATURE GRAN PERCENT AUTO 0.1 % (0.0-4.9); LYMPHOCYTES ABSOLUTE AUTO 3.08 10^3/uL (0.60-5.00); LYMPHOCYTES PERCENT AUTO 31.7 % (24-44); MEAN CORPUSCULAR HEMOGLOBIN 30.2 pg (27.0-32.0); MEAN CORPUSCULAR HGB CONC 32.8 g/dL (32.0-36.0); MONOCYTES ABSOLUTE AUTO 0.74 10^3/uL (0.00-1.50); MONOCYTES PERCENT AUTO 7.3 % (0-10); NEUTROPHILS ABSOLUTE AUTO 4.85 x10^3/uL (1.80-8.00); NEUTROPHILS PERCENT AUTO 49.9 % (41-71); PLATELET COUNT,PLT 363 10^3/uL (150-400); RED BLOOD CELL COUNT 3.64 x10^6/uL (4.00-5.50); WHITE BLOOD CELL COUNT,WBC 9.7 10^3/uL (4.0-11.0)
[2023-11-15 11:32] LABS: CREATININE 0.9 mg/dL (0.6-1.0); EST CRCL DRUG DOSING (CG) 32.6 mL/min; POTASSIUM,K 3.9 mEq/L (3.5-5.0); PROTEIN TOTAL,TP 6.1 g/dL (6.4-8.2)
[2023-11-15 11:33] LABS: ALBUMIN 2.4 g/dL (3.4-5.0); BILIRUBIN TOTAL 0.2 mg/dL (0.0-1.0); C-REACTIVE PROTEIN 2.78 mg/dL (<=0.50)
[2023-11-15] MEDS: Levothyroxine 88 MCG Tab PO SCH (11:36)
[2023-11-15] MEDS: Potassium Chloride 20 MEQ Tab.ER PO SCH (11:37)
[2023-11-15] MEDS: Loratadine 10 MG Tab PO SCH (11:37)
[2023-11-15] MEDS: Cefuroxime 250 MG Tab PO SCH (11:37)
[2023-11-15] MEDS: Losartan 25 MG Tab PO SCH (11:37)
[2023-11-15] MEDS: Estradiol 1 MG Tab PO SCH (11:37)
[2023-11-15] MEDS: Hydrochlorothiazide/Triamterene 25-37.5 Tab PO SCH (11:38)
[2023-11-15] MEDS: Enoxaparin 40 MG/0.4 ML Syringe SUBCUT SCH (11:39)
[2023-11-15] MEDS: Furosemide 40 MG Tab PO SCH (11:39)
[2023-11-15] MEDS: Cranberry 500 MG Cap PO SCH (11:40)
[2023-11-15] MEDS: Acetaminophen 325 MG Tab PO PRN (16:27)
[2023-11-15] MEDS: Carbamide Peroxide 6.5% Otic Soln 15 ML Bottle EARBOTH SCH (20:05)
[2023-11-16 07:44] LABS: BASOPHILS ABSOLUTE AUTO 0.04 10^3/uL (0.00-0.50); BASOPHILS PERCENT AUTO 0.5 % (0-1); EOSINOPHILS ABSOLUTE AUTO 1.02 10^3/uL (0.00-1.50); EOSINOPHILS PERCENT AUTO 11.7 % (0-6); HEMATOCRIT 33.3 % (37.0-47.0); IMMATURE GRAN ABSOLUTE AUTO 0.01 10^3/uL (0.00-0.49); IMMATURE GRAN PERCENT AUTO 0.1 % (0.0-4.9); LYMPHOCYTES ABSOLUTE AUTO 3.08 10^3/uL (0.60-5.00); LYMPHOCYTES PERCENT AUTO 35.2 % (24-44); MEAN CORPUSCULAR HEMOGLOBIN 30.1 pg (27.0-32.0); MEAN CORPUSCULAR VOLUME 91.2 fL (83.0-97.0); MONOCYTES ABSOLUTE AUTO 0.67 10^3/uL (0.00-1.50); MONOCYTES PERCENT AUTO 7.7 % (0-10); NEUTROPHILS ABSOLUTE AUTO 3.92 x10^3/uL (1.80-8.00); NEUTROPHILS PERCENT AUTO 44.8 % (41-71); PLATELET COUNT,PLT 370 10^3/uL (150-400); RED BLOOD CELL COUNT 3.65 x10^6/uL (4.00-5.50); WHITE BLOOD CELL COUNT,WBC 8.7 10^3/uL (4.0-11.0)
[2023-11-16 07:57] LABS: C-REACTIVE PROTEIN 2.21 mg/dL (<=0.50); CALCIUM 8.8 mg/dL (8.4-10.1); CREATININE 0.9 mg/dL (0.6-1.0); EST CRCL DRUG DOSING (CG) 32.6 mL/min; POTASSIUM,K 3.8 mEq/L (3.5-5.0)
[2023-11-16 16:20] VITALS: BP 158/76; PULSE 84
== END 2023-11-16 18:40 | disposition home or self-care (01) ==
LOC: CC.ED 15:43 → CC.MS 16:54 → UNDOADMOB 16:54 → CC.MS 17:10
PROVIDERS: ADMIT Nurse Practitioner Family; ATTEND Nurse Practitioner Family
DX: H81.10 Benign paroxysmal vertigo, unspecified ear (principal); R41.0 Disorientation, unspecified; H61.23 Impacted cerumen, bilateral; R60.0 Localized edema; K21.9 Gastro-esophageal reflux disease without esophagitis; F32.A Depression, unspecified; E03.9 Hypothyroidism, unspecified; E78.00 Pure hypercholesterolemia, unspecified; Z20.822 Contact with and (suspected) exposure to COVID-19; Z79.890 Hormone replacement therapy; Z79.899 Other long term (current) drug therapy; Z88.0 Allergy status to penicillin; Z88.6 Allergy status to analgesic agent; Z88.1 Allergy status to other antibiotic agents; Z88.2 Allergy status to sulfonamides
CPT/HCPCS: 0241U; 36415; 70450; 71045; 80048; 80053; 81003; 83735; 83880; 84484; 85025; 86140; 93005; 97112-GP; 97162-GP; 97530-GP; 99223; 99233; 99238; 99285; A9270-GY; J1650